=== PATIENT | female | born 1960 | race Caucasian/White ===

== ENCOUNTER → 2017-08-02 11:22 | Outpatient (CLI) | payer OTHER ==
--- NOTE | ~2017-08-02 | HEMODYNAMI ---
PATIENT:SRINIVAS BOLDEN MEDICAL RECORD: [id number] : 62 LOCATION:[facility] ADMISSION DATE: 08/02/17 Generatedon:08/02/201713:40 Patient name: SRINIVAS BOLDEN Patient #: [id number] SSN: : 1960 Date of study: 08/02/2017 Page: Of Hemodynamic Procedure Report Patient Data Patient Demographics Procedure consent was obtained First Name: SRINIVAS Gender: Female Last Name: YUAN : 1960 Middle Initial: SHARATH Age: 56 year(s) Patient #: [id number] Race: Unknown Additional ID: [id number] Contact details Address: [address] [place] [address] lane State: [place] City: [facility] [place] Zip code: [address] Past Medical History Allergies Allergen Reaction Date Comments Reported Other allergy 08/02/2017 MATT nolan Admission Admission Data Admission Date: 08/02/2017 Admission Time: 11:22 Lab Results Lab Result Date: 08/02/2017 Lab Result Time: 11:55 Biochemistry Name Units Result Min Max BUN mg/dl 18 --(---*)-- 7 18 Creatinine mg/dl 0.8 --(-*--)-- 0.6 1.3 CBC Name Units Result Min Max Hematocrit % 43.4 --(*---)-- 42 54 Hemoglobin g/dl 13.8 --(*---)-- 13.5 17.5 Procedure Procedure Types Cath Procedure Miscellaneous Procedures Moderate Sedation up to 30 minutes Peripheral Cath Diagnostic Procedure Cath Peripheral Jgrrs-Ieodapy-Vcy-Off Procedure Description Procedure Date Procedure Date: 08/02/2017 Procedure Start Time: 13:10 Procedure End Time: 13:39 Procedure Staff Name Function Jose Chaves MD Performing Physician Krissy Khan RT Scrub Ragini Moreno RN Nurse Chelita Fajardo RN Nurse Troy Colon RT Monitor Procedure Data Cath Procedure Fluoroscopy Diagnostic fluoroscopy Total fluoroscopy Time: 3 time: 3 min min Diagnostic fluoroscopy Total fluoroscopy dose: 460 dose: 460 mGy mGy Contrast Material Contrast Material Type Amount (ml) Isovue 300 102 Entry Location Entry Primary Successful Side Size Upsize Upsize Entry Closure Succes sful Closure Location (Fr) 1 (Fr) 2 (Fr) Remarks Device Remarks Femoral Right 6 Fr Exoseal artery Short Estimated blood loss: 5 ml Diagnostic catheters Device Type Used For End Catheter Placement Cordis Tempo 5Fr UF Procedure catheter Diagnostic 5Fr IMT Procedure Catheter Procedure Complications No complications Procedure Medications Medication Administration Route Dosage Oxygen NC 2 l/min Lidocaine 2% added to field 20 Heparin Flush Bag added to field 2 bags (1000units/500ml NS) 0.9% NaCl I.V. 100 ml/hr Versed I.V. 1 mg Fentanyl I.V. 50 mcg Versed I.V. 1 mg Fentanyl I.V. 50 mcg Versed I.V. 1 mg Fentanyl I.V. 50 mcg Versed I.V. 1 mg Fentanyl I.V. 50 mcg Versed I.V. 1 mg Fentanyl I.V. 50 mcg Versed I.V. 1 mg Fentanyl I.V. 50 mcg Hemodynamics Rest HGB: 13.8 (g/dl) Heart Rate: 100 (bpm) Snapshots Pre Cath Intra NCS Post Cath Vital Signs Time Heart Resp SPO2 etCO2 NIBP Rhythm Pain Sedation Rate (ipm) (%) (mmHg) (mmHg) Status Level (bpm) 13:07:11 98 19 100 45.5 129/70(94) NSR 0 (11) 10(A) , No pain 13:11:27 101 19 99 35.8 111/85(96) NSR 0 (11) 10(A) , No pain 13:15:41 96 17 99 42.5 120/64(80) NSR 0 (11) 10(A) , No pain 13:19:59 97 13 99 46.2 108/67(91) NSR 0 (11) 10(A) , No pain 13:24:11 93 16 99 48.5 107/70(90) NSR 0 (11) 10(A) , No pain 13:28:29 99 15 99 39.5 124/52(89) NSR 0 (11) 10(A) , No pain 13:32:35 96 14 99 38.8 100/69(88) NSR 0 (11) 10(A) , No pain 13:36:45 97 14 99 43.3 108/65(83) NSR 0 (11) 10(A) , No pain Medications Time Medication Route Dose Verified Delivered Reason Notes Effe ctiveness by by 13:05:37 Oxygen NC 2 Jose Buffie used for l/min Anastacio Moreno RN procedure 13:05:49 Lidocaine 2% added 20ml Jose Jose for local to vial Anastacio Chaves MD anesthetic field 13:05:57 Heparin Flush added 2 Jose Jose used for Bag to bags Anastacio Chaves MD procedure (1000units/500ml field NS) 13:06:07 0.9% NaCl I.V. 100 Jose Buffie Per ml/hr Anastacio Moreno RN physician 13:09:10 Versed I.V. 1 mg Jose Buffie for Anastacio Moreno RN sedation 13:09:15 Fentanyl I.V. 50 Jose Buffie for mcg Anastacio Moreno RN sedation 13:12:44 Versed I.V. 1 mg Jose Buffie for Anastacio Moreno RN sedation 13:12:48 Fentanyl I.V. 50 Jose Buffie for mcg Anastacio Moreno RN sedation 13:18:27 Versed I.V. 1 mg Jose Buffie for Anastacio Moreno RN sedation 13:18:30 Fentanyl I.V. 50 Jose Buffie for mcg Anastacio Moreno RN sedation 13:22:50 Versed I.V. 1 mg Jose Buffie for Anastacio Moreno RN sedation 13:22:54 Fentanyl I.V. 50 Jose Buffie for mcg Anastacio Moreno RN sedation 13:28:16 Versed I.V. 1 mg Jose Buffie for Anastacio Moreno RN sedation 13:28:19 Fentanyl I.V. 50 Jose Buffie for mcg Anastacio Moreno RN sedation 13:32:12 Versed I.V. 1 mg Jose Buffie for Anastacio Moreno RN sedation 13:32:17 Fentanyl I.V. 50 Jose Buffie for mcg Anastacio Moreno RN sedation Procedure Log Time Note 12:40:14 Ragini Moreno RN sent for patient. Start room use. 12:40:15 Time tracking: Regular hours 12:40:19 Plan of Care:Hemodynamics will remain stable., Cardiac rhythm will remain stable., Comfort level will be maintained., Respiratory function will remain adequate., Patient/ family verbilizes understanding of procedure., Procedure tolerated without complication., Recovers from procedure without complications.. 12:51:19 Patient received from Pre/Post Procedure Room to CCL 2 Alert and oriented. Tansferred to table in Supine position. 12:51:20 Warm blankets applied, and nabor hugger turned on for patient comfort. 12:51:21 Correct patient and procedure confirmed by team. 12:51:22 Signed procedure consent form obtained from patient. 12:51:23 ECG and BP/O2 sat monitors applied to patient. 12:51:24 Full Disclosure recording started 13:05:37 Oxygen 2 l/min NC was administered by Ragini Moreno RN; used for procedure; 13:05:49 Lidocaine 2% 20ml vial added to field was administered by Jose Chaves MD; for local anesthetic; 13:05:54 Vital chart was started 13:05:57 Heparin Flush Bag (1000units/500ml NS) 2 bags added to field was administered by Jose Chaves MD; used for procedure; 13:05:57 Baseline sample Acquired. 13:06:00 Rhythm: sinus rhythm 13:06:07 0.9% NaCl 100 ml/hr I.V. was administered by Ragini Moreno RN; Per physician; 13:06:15 H&P Date Dictated: 07/29/2017 Within 30 days and on chart., H&P Addendum completed by physician on day of procedure. (MUST COMPLETE FOR ALL OUTPATIENTS). 13:06:16 Pre-procedure instructions explained to patient. 13:06:17 Pre-op teaching completed and patient verbalized understanding. 13:06:17 Family in waiting room. 13:06:19 Patient NPO since Midnight. 13:06:34 Patient allergic to Other allergycodeine, PCN 13:06:44 Is the patient allergic to Iodine/contrast media? No. 13:06:47 Is patient on blood thinner?No 13:06:48 Patient diabetic? Yes. 13:06:49 If diabetic: On Metformin? Yes 13:06:52 If on Metformin: Last Dose? 07/31/2017 13:06:58 Previous problem with sedation/anesthesia? No ? 13:06:59 Snore? Yes 13:07:00 Sleep apnea? No 13:07:01 Deviated septum? No 13:07:01 Opens mouth fully? Yes 13:07:02 Sticks out tongue? Yes 13:07:04 Airway obstruction? No ? 13:07:05 Dentures? No ? 13:07:09 Pre procedure: right dorsailis pedis pulse Doppler 13:07:11 Pre procedure: left dorsailis pedis pulse Doppler 13:07:14 Patient pain scale 0/10 ?. 13:07:17 IV patent on arrival in left antecubital with 0.9% NaCl at [facility]. 13:08:36 Lab Result : Creatinine 0.8 mg/dl 13:08:36 Lab Result : BUN 18 mg/dl 13:08:36 Lab Result : Hemoglobin 13.8 g/dl 13:08:36 Lab Result : Hematocrit 43.4 % 13:08:38 Lab results completed and on chart. 13:08:40 Bilateral groins area was prepped with chlora-prep and draped in sterile fashion 13:08:41 Alarms reviewed by R. N. 13:08:41 Sharps counted by scrub and verified by R.N. 13:08:44 Tegaderm 4 x 4 opened to sterile field. 13:08:45 Acist Manifold opened to sterile field. 13:08:45 Acist Hand Control opened to sterile field. 13:08:47 St Octavio 260cm J .035 wire opened to sterile field. 13:08:47 Medline Cath Pack opened to sterile field. 13:08:48 Bag Decanter opened to sterile field. 13:08:48 Acist Syringe opened to sterile field. 13:08:57 Terumo 6Fr [place] Sheath opened to sterile field. 13:09:02 Physician arrived 13:09:02 --------ALL STOP TIME OUT------ 13:09:05 Final Timeout: patient, procedure, and site verified with staff and physician. All members of the team are in agreement. 13:09:08 Bilateral groins site verified by team. 13:09:10 Versed 1 mg I.V. was administered by Ragini Moreno RN; for sedation; 13:09:11 Physical assessment completed. ASA score P 2 - A patient with mild systemic disease as per Jose Chaves MD. 13:09:13 Sedation plan: IV Moderate Sedation Versed, Fentanyl 13:09:15 Fentanyl 50 mcg I.V. was administered by Ragini Moreno RN; for sedation; 13:10:15 Procedure started. 13:10:18 Local anesthetic to right femoral artery with Lidocaine 2% by Jose Chaves MD.INITIAL ACCESS ONLY 13:12:44 Versed 1 mg I.V. was administered by Ragini Moreno RN; for sedation; 13:12:47 A 6 Fr Short sheath was inserted into the Right Femoral artery 13:12:48 Fentanyl 50 mcg I.V. was administered by Ragini Moreno RN; for sedation; 13:13:02 Zero performed for pressure channel P1 13:15:39 A Cordis Tempo 5Fr UF catheter was advanced over the wire and used for Procedure. 13:16:39 Abdominal Aortagram was performed. 13:18:27 Versed 1 mg I.V. was administered by Ragini Moreno RN; for sedation; 13:18:30 Fentanyl 50 mcg I.V. was administered by Ragini Moreno RN; for sedation; 13:18:59 Left leg runoff performed. 13:18:59 Right leg runoff performed. 13:20:47 Terumo ANGLE 260cm glide wire opened to sterile field. 13:21:09 glide wire advanced. 13:21:23 [place] wire advanced around horn. 13:22:50 Versed 1 mg I.V. was administered by Ragini Moreno RN; for sedation; 13:22:54 Fentanyl 50 mcg I.V. was administered by Ragini Moreno RN; for sedation; 13:22:59 Catheter removed. 13:23:03 A Diagnostic 5Fr IMT Catheter was advanced over the wire and used for Procedure. 13:28:16 Versed 1 mg I.V. was administered by Ragini Moreno RN; for sedation; 13:28:19 Fentanyl 50 mcg I.V. was administered by Ragini Moreno RN; for sedation; 13:32:12 Versed 1 mg I.V. was administered by Ragini Moreno RN; for sedation; 13:32:17 Fentanyl 50 mcg I.V. was administered by Ragini Moreno RN; for sedation; 13:32:57 Wire removed. 13:33:03 Catheter removed. 13:33:41 Cordis 6Fr Exoseal opened to sterile field. 13:33:51 Sheath removed intact; hemostasis achieved with Exoseal to the Right Femoral artery. 13:33:52 Procedure ended.(Physican Out) 13:34:26 Fluoroscopy time 03.00 minutes. 13:34:36 Fluoroscopy dose: 460 mGy 13:34:36 Flurop Dose total: 460 13:34:41 Contrast amount:Isovue 300 102ml. 13:34:43 Sharps counted by scrub and verified by R.N. 13:34:44 Insertion/operative site no bleeding no hematoma. 13:34:47 Post-op/insertion site Right Femoral artery dressed using a 4 x 4 and Tegaderm. 13:34:50 Post right femoral artery:stable, soft, clean and dry 13:34:52 Post Procedure Pulses reassessed and unchanged 13:34:53 Post-procedure physical assessment completed. ASA score P 2 - A patient with mild systemic disease as per Jose Chaves MD. 13:34:56 Post procedure rhythm: unchanged. 13:36:46 Estimated blood loss: 5 ml 13:36:57 Post procedure instruction explained to patient.Patient verbalizes understanding. 13:36:58 Patient needs reinforcement of post procedure teaching. 13:38:42 Procedure type changed to Cath procedure, Miscellaneous Procedures, Moderate Sedation up to 30 minutes, Peripheral Cath Diagnostic Procedure, Cath Peripheral, Nqare-Redjlvd-Duj-Off 13:39:02 PERCUTANEOUS ENTRY 19GA needle opened to sterile field. 13:39:22 Procedure and supply charges have been captured, reviewed, submitted and are correct. 13:39:24 Procedure Complication : No complications 13:39:46 Vital chart was stopped 13:39:46 See physician's report for complete and final results. 13:39:48 Report given to Pre/Post Procedure Room. 13:39:57 Patient transfered to Pre/Post Procedure Room with Stretcher. 13:39:58 Procedure ended. 13:39:58 Full Disclosure recording stopped 13:40:16 End room use (Document Last) Device Usage Item Name Manufacture Quantity Catalog Number Hospital Part Current Mini mal Lot# / Charge Number Stock Stock Serial# Code Tegaderm 4 x 3M 1 [id number] [id number] [id number] 5 4 Acist Acist 1 27118 692528 118788 372134 5 Novalys Inc Acist Hand Acist 1 23683 415482 436079 113496 [address] St Octavio 1 083067 807937 140617 460182 30 260cm J .035 wire Medline Cath Cardinal 1 [id number] 643586 65835 546393 5 Pack Health Bag Decanter Microtek 1 2002S 165199 07041 248110 5 Medical Inc. Acist Acist 1 89085 866853 557468 127437 20 Syringe Medical Systems Inc Terumo 6Fr Terumo 1 [id number] 958055 826354 910518 40 [place] Sheath Cordis Tempo Cardinal 1 [id number] 194812 039956 320328 10 5Fr Health catheter Terumo ANGLE Terumo 1 [id number] 041607 630039 389344 5 260cm glide wire Diagnostic Sorrento 1 [id number] 926980 846841 93282 5 5Fr [employer] Scientific Catheter Cordis 6Fr Cardinal 1 EX600 550532 184696 524388 10 [facility] 1 [id number] 800866 824350 5 ENTRY 19GA needle Signature Audit [place] Stage Time Signature Unsigned Intra-Procedure 08/02/2017 Troy Colon 1:40:43 PM RT(R) Signatures Monitor : Troy Colon RT Signature : Date : Time : [id number] [place] [address]
[~2017-08-02 11:22] MED LIST: ACTOS30 MG PO; GLUCOPHAGE500 MG PO; GLYBURIDE5 M1 PO; IBUPROFEN800 MG PO; LEVOTHYROXINE112 MCG PO; NEURONTIN 300300 MG PO; NORVASC10 MG PO; PLAVIX75 MG PO; PRINIVIL20 MG PO; ULTRAM50 MG PO
[2017-08-02 11:51] VITALS: BP 131/68; BMI 44.0
[2017-08-02 12:15] LABS: BASOPHILS 0.2 % (0-2); EOSINOPHILS 2.7 % (0-7); HEMATOCRIT 43.4 % (36.0-48.0); HEMOGLOBIN 13.8 g/dL (12-16); IMMATURE GRANULOCYTES 0.2 % (0-5); MCHC 31.8 g/dL (31.0-37.0); MCV 84.9 fL (80.0-100.0); MEAN PLATELET VOLUME 9.4 fL (7.4-10.4); MONOCYTES 7.5 % (2-11); NEUTROPHILS 68.4 % (40-80); PLATELET COUNT 331 10x3/uL (130-400); RBC 5.11 10x6/uL (4.00-5.40); RDW 15.9 % (11.5-14.5); WBC 8.6 10x3/uL (4.8-10.8)
[2017-08-02 12:27] LABS: CALC OSMOLALITY 285 mosm/kg (275-300); CALCIUM 9.1 mg/dL (8.5-10.1); CARBON DIOXIDE 27.4 mmol/L (21.0-32.0); CHLORIDE - SERUM 106 mmol/L (98-107); CREATININE - SERUM 0.8 mg/dL (0.6-1.3); SODIUM 142 mmol/L (136-145); UREA NITROGEN 18 mg/dL (7-18); eGFR NON AFRICAN AMERICAN 79 mL/min (90-120)
[2017-08-02 12:32] LABS: GLUCOSE 122 mg/dL (74-106)
--- NOTE | 2017-08-02 13:57 | NUR ---
1345 RECEIVED PT FROM P[employer] INST[employer]ER. PT IS ALERT. DENIES ANY C/O PAIN OR NAUSEA. DRESSING TO RIGHT GROIN IS CDI, NO BLEEDING OR HEMATOMA NOTED. AREA IS SOFT AND NONTENDER. POSTERIOR TIBIAL AND POLITEAL PULSES BY DOPPLER. CALL LIGHT IN REACH. PT INSTRUCTED TO KEEP HEAD TO PILLOW AND RIGHT LEG STRAIGHT AND VERBALIZES UNDERSTANDING.
--- NOTE | 2017-08-02 14:09 | NUR ---
1400 DRESSING RIGHT GROIN IS CDI, AREA IS SOFT AND NONTENDER. PULSES BY DOPPLER. DENIES ANY C/O PAIN OR NAUSEA. FAMILY AT BEDSIDE, CALL LIGHT IN REACH.
--- NOTE | 2017-08-02 14:20 | NUR ---
1420 DRESSING IS CDI, AREA SOFT AND NONTENDER. PULSES BY DOPPLER. FAMILY AT BEDSIDE, PT DENIES NEEDS AT THIS TIME. CALL LIGHT IN REACH.
--- NOTE | 2017-08-02 15:15 | NUR ---
1510 PT VOIDED APPROX 300 CC CLEAR YELLOW URINE USING BEDPAN. RIGHT GROIN DRESSING REMAINS CDI, AREA SOFT AND NONTENDER.
--- NOTE | 2017-08-02 15:15 | NUR ---
1445 DRESSING RIGHT GROIN IS CDI, AREA IS SOFT AND NONTENDER. PT DENIES ANY C/O AT THIS TIME. CALL LIGHT IN REACH. FAMILY AT BEDSIDE.
--- NOTE | 2017-08-02 15:42 | NUR ---
HOB ELEVATED 45 DEGREES, SANDWICH AND PO FLUIDS SERVED. DRESSING REMAINS CDI.
--- NOTE | 2017-08-02 16:11 | NUR ---
1410 HOB ELEVATED 90 DEGREES, RIGHT GROIN DRESSING REMAINS CDI. AREA IS SOFT AND NONTENDER. PT HAS TOLERATED SANDWICH WITH NO C/O NAUSEA. IV DC'D WITH CATH INTACT. PT DRESSING FOR DC TO HOME.
--- NOTE | 2017-08-02 16:26 | NUR ---
1625 IV HAS BEEN DC'D WITH CATH INTACT. PT DRESSING FOR DC TO HOME. DRESSING TO RIGHT GROIN IS CDI, AREA IS SOFT AND NONTENDER.
--- NOTE | 2017-08-02 16:37 | NUR ---
1630 DC INSTRUCTIONS HAVE BEEN REVIEWED AND PT VERBALIZES UNDERSTANDING. PT ESCORTED TO PRIVATE AUTO VIA WC BY NURSE WITH DAUGHTER DRIVING HER HOME.
== END | disposition home or self-care (01) ==
LOC: D.CATH 11:22
PROVIDERS: Internal Medicine Cardiovascular Disease
DX: I70.213 Atherosclerosis of native arteries of extremities with intermittent claudication, bilateral legs (principal); I10 Essential (primary) hypertension; Z87.891 Personal history of nicotine dependence; Z01.812 Encounter for preprocedural laboratory examination

== ENCOUNTER 2017-08-16 10:58 | Outpatient (CLI) | payer OTHER ==
[~2017-08-16] VITALS: Ht 152.4 cm; Wt 102.3 kg
--- NOTE | ~2017-08-16 | HEMODYNAMI ---
PATIENT:SRINIVAS BOLDEN MEDICAL RECORD: [id number] : 62 LOCATION:[facility] ADMISSION DATE: 08/16/17 Generatedon:08/16/201715:19 Patient name: SRINIVAS BOLDEN Patient #: [id number] SSN: : 1960 Date of study: 08/16/2017 Page: Of Hemodynamic Procedure Report Patient Data Patient Demographics Procedure consent was obtained First Name: SRINIVAS Gender: Female Last Name: YUAN : 1960 Middle Initial: SHARATH Age: 56 year(s) Patient #: [id number] Race: Unknown Additional ID: [id number] Contact details Address: [address] [place] [address] [place] State: [place] City: [facility] Zip code: [address] Past Medical History Allergies Allergen Reaction Date Comments Reported Other allergy 08/02/2017 codeine, PCN Other allergy 08/16/2017 pcn, codeine Admission Admission Data Admission Date: 08/16/2017 Admission Time: 10:58 Lab Results Lab Result Date: 08/16/2017 Lab Result Time: 0:00 Biochemistry Name Units Result Min Max BUN mg/dl 15 --(--*-)-- 7 18 Creatinine mg/dl 0.7 --(*---)-- 0.6 1.3 CBC Name Units Result Min Max Hemoglobin g/dl 14.8 --(-*--)-- 13.5 17.5 Procedure Procedure Types Cath Procedure Miscellaneous Procedures Moderate Sedation up to 15 minutes Moderate Sedation up to 45 minutes Peripheral vascular Intervention Stent Stent-Fem/Popw/plasty Procedure Description Procedure Date Procedure Date: 08/16/2017 Procedure Start Time: 14:13 Procedure End Time: 15:16 Procedure Staff Name Function Jose Chaves MD Performing Physician Jacquelin Crandall RT Scrub Farhat Mckenzie RN Nurse Melinda Pena RT Monitor Procedure Data Cath Procedure Fluoroscopy Diagnostic fluoroscopy Total fluoroscopy Time: time: 19.9 min 19.9 min Diagnostic fluoroscopy Total fluoroscopy dose: 994 dose: 994 mGy mGy Contrast Material Contrast Material Type Amount (ml) Isovue 300 118 Entry Location Entry Primary Successful Side Size Upsize Upsize Entry Closure Plata ccessful Closure Location (Fr) 1 (Fr) 2 (Fr) Remarks Device Remarks Femoral Left 5 Fr Manual vein Compression Femoral Left 6 Fr 6 Fr Exoseal artery Long Short Estimated blood loss: 5 ml Diagnostic catheters Device Type Used For End Catheter Placement Diagnostic Infinity 5Fr Multi-vessel IM catheter Angiography Procedure Complications No complications Procedure Medications Medication Administration Route Dosage Oxygen NC 2 l/min Heparin Flush Bag added to field 2 bags (1000units/500ml NS) 0.9% NaCl I.V. 100 ml/hr Fentanyl I.V. 50 mcg Versed I.V. 1 mg Fentanyl I.V. 50 mcg Versed I.V. 1 mg Fentanyl I.V. 50 mcg Versed I.V. 1 mg Heparin Bolus I.V. 8000 units Fentanyl I.V. 50 mcg Versed I.V. 1 mg Plavix P.O. 600 mg Hemodynamics Rest HGB: 14.8 (g/dl) Heart Rate: 94 (bpm) Snapshots Pre Cath Intra NCS Post Cath Vital Signs Time Heart Resp SPO2 etCO2 NIBP (mmHg) Rhythm Pain Sedation Rate (ipm) (%) (mmHg) Status Level (bpm) 14:01:19 97 17 100 34.1 163/84(121) NSR 0 (11) 10(A) , No pain 14:19:43 87 17 100 45.4 150/79(98) NSR 0 (11) 10(A) , No pain 14:24:08 92 16 100 45.4 133/77(120) NSR 0 (11) 10(A) , No pain 14:29:19 88 18 99 43.1 124/75(107) NSR 0 (11) 10(A) , No pain 14:33:33 91 17 99 43.9 120/77(112) NSR 0 (11) 10(A) , No pain 14:37:47 90 18 99 45.4 123/77(91) NSR 0 (11) 10(A) , No pain 14:43:12 97 17 99 42.4 145/70(102) NSR 0 (11) 10(A) , No pain 14:47:39 91 18 99 40.9 143/77(109) NSR 0 (11) 10(A) , No pain 14:51:49 88 17 99 39.3 134/61(104) NSR 0 (11) 10(A) , No pain 15:03:54 90 17 98 34 137/69(103) NSR 0 (11) 10(A) , No pain 15:08:12 90 17 98 37.8 136/72(120) NSR 0 (11) 10(A) , No pain 15:18:12 88 17 99 37.1 113/79(90) NSR 0 (11) 10(A) , No pain Medications Time Medication Route Dose Verified Delivered Reason Notes Effectiveness by by 13:59:05 Oxygen NC 2 Jose Farhat Per physician l/min Anastacio Mckenzie RN 13:59:14 Heparin Flush added 2 Jose Farhat used for Bag to bags Anastacio Mckenzie RN procedure (1000units/500ml field NS) 13:59:27 0.9% NaCl I.V. 100 Jose Farhat Per physician ml/hr Anastacio Mckenzie RN 14:10:58 Fentanyl I.V. 50 Jose Farhat for sedation mcg Anastacio Mckenzie RN 14:11:13 Versed I.V. 1 mg Jose Farhat for sedation Anastacio Mckenzie RN 14:15:25 Fentanyl I.V. 50 Jose Farhat for sedation mcg Anastacio Mckenzie RN 14:15:28 Versed I.V. 1 mg Jose Farhat for sedation Anastacio Mckenzie RN 14:18:39 Fentanyl I.V. 50 Jose Farhat for sedation mcg Anastacio Mckenzie RN 14:21:23 Versed I.V. 1 mg Jose Farhat for sedation Anastacio Mckenzie RN 14:27:11 Heparin Bolus I.V. 8000 Jose Farhat for units Anastacio Mckenzie RN anticoagulation 14:30:40 Fentanyl I.V. 50 Jose Farhat for sedation mcg Anastacio Mckenzie RN 14:30:46 Versed I.V. 1 mg Jose Farhat for sedation Anastacio Mckenzie RN 15:18:42 Plavix P.O. 600 Jose Farhat for mg Anastacio Mckenzie RN antiplatelet therapy Procedure Log Time Note 13:40:15 Farhat Mckenzie RN sent for patient. Start room use. 13:52:16 Time tracking: Regular hours 13:52:21 Plan of Care:Hemodynamics will remain stable., Cardiac rhythm will remain stable., Comfort level will be maintained., Respiratory function will remain adequate., Patient/ family verbilizes understanding of procedure., Procedure tolerated without complication., Recovers from procedure without complications.. 13:52:55 Patient received from Pre/Post Procedure Room to CCL 2 Alert and oriented. Tansferred to table in Supine position. 13:52:56 Warm blankets applied, and nabor hugger turned on for patient comfort. 13:52:56 Correct patient and procedure confirmed by team. 13:52:58 Signed procedure consent form obtained from patient. 13:52:59 ECG and BP/O2 sat monitors applied to patient. 13:59:05 Oxygen 2 l/min NC was administered by Farhat Mckenzie RN; Per physician; 13:59:14 Heparin Flush Bag (1000units/500ml NS) 2 bags added to field was administered by Farhat Mckenzie RN; used for procedure; 13:59:27 0.9% NaCl 100 ml/hr I.V. was administered by Farhat Mckenzie RN; Per physician; 13:59:54 Vital chart was started 14:00:53 Baseline sample Acquired. 14:07:37 Rhythm: sinus rhythm 14:07:39 Full Disclosure recording started 14:07:42 H&P Date Dictated: 08/16/2017 Within 30 days and on chart., H&P Addendum completed by physician on day of procedure. (MUST COMPLETE FOR ALL OUTPATIENTS). 14:07:44 Pre-procedure instructions explained to patient. 14:07:44 Pre-op teaching completed and patient verbalized understanding. 14:07:45 Family in waiting room. 14:07:47 Patient NPO since Midnight. 14:08:02 Patient allergic to Other allergypcn, codeine 14:08:04 Is the patient allergic to Iodine/contrast media? No. 14:08:05 Was the patient premedicated? No 14:08:07 Is patient on blood thinner?No 14:08:11 Patient diabetic? Yes. 14:08:14 Previous problem with sedation/anesthesia? No ? 14:08:21 Snore? Yes 14:08:22 Sleep apnea? No 14:08:23 Deviated septum? No 14:08:24 Opens mouth fully? Yes 14:08:25 Sticks out tongue? Yes 14:08:36 If diabetic: On Metformin? Yes 14:08:39 If on Metformin: Last Dose? 08/14/2017 14:08:44 Airway obstruction? No ? 14:08:47 Dentures? No ? 14:08:49 Pre procedure: right dorsailis pedis pulse 1+ Palpable, but thready & weak; easily obliterated 14:08:52 Pre procedure: left dorsailis pedis pulse 1+ Palpable, but thready & weak; easily obliterated 14:08:57 IV patent on arrival in left forearm with 0.9% NaCl at [facility]. 14:09:19 Lab Result : BUN 15 mg/dl 14::19 Lab Result : Creatinine 0.7 mg/dl 14:09:19 Lab Result : Hemoglobin 14.8 g/dl 14:09:22 Lab results completed and on chart. 14:09:30 Bilateral groins area was prepped with chlora-prep and draped in sterile fashion 14:09:31 Alarms reviewed by R. N. 14:09:32 Sharps counted by scrub and verified by R.N. 14:09:33 Physician arrived 14::33 --------ALL STOP TIME OUT------ 14:09:33 Final Timeout: patient, procedure, and site verified with staff and physician. All members of the team are in agreement. 14:09:35 Bilateral groins site verified by team. 14:09:38 Physical assessment completed. ASA score P 2 - A patient with mild systemic disease as per Jose Chaves MD. 14:09:41 Sedation plan: IV Moderate Sedation Versed, Fentanyl 14:10:58 Fentanyl 50 mcg I.V. was administered by Farhat Mckenzie RN; for sedation; 14:11:13 Versed 1 mg I.V. was administered by Farhat Mckenzie RN; for sedation; 14:12:11 Procedure started. 14:12:13 Use device set Femoral PCI 14:12:14 Acist Syringe opened to sterile field. 14:12:14 Acist Hand Control opened to sterile field. 14:12:15 Bag Decanter opened to sterile field. 14:12:15 Medline Cath Pack opened to sterile field. 14:12:16 Terumo 6Fr [place] Sheath opened to sterile field. 14:12:16 St Octavio 260cm J .035 wire opened to sterile field. 14:12:17 Merit BasixCompak Inflation Kit opened to sterile field. 14:12:17 Acist Manifold opened to sterile field. 14:12:18 Tegaderm 4 x 4 opened to sterile field. 14:12:43 Terumo 6Fr [place] Destination Sheath opened to sterile field. 14:12:44 Terumo ANGLE 260cm glide wire opened to sterile field. 14:13:02 Local anesthetic to left femerol artery with Lidocaine 2% by Jose Chaves MD.INITIAL ACCESS ONLY 14:14:32 A 5 Fr sheath was inserted into the Left Femoral vein 14:14:54 A 6 Fr Long sheath was inserted into the Left Femoral artery 14:15:25 Fentanyl 50 mcg I.V. was administered by Farhat Mckenzie RN; for sedation; 14:15:28 Versed 1 mg I.V. was administered by Farhat Mckenzie RN; for sedation; 14:16:14 A Diagnostic Infinity 5Fr IM catheter was advanced over the wire and used for Multi-vessel Angiography. 14:18:26 Vital chart was stopped 14:18:27 Vital chart was started 14:18:39 Fentanyl 50 mcg I.V. was administered by Farhat Mckenzie RN; for sedation; 14:19:00 glide\ wire advanced. 14:19:09 Right leg runoff performed. 14:21:23 Versed 1 mg I.V. was administered by Farhat Mckenzie RN; for sedation; 14:23:10 Terumo TORQUE DEVICE PLASTIC .038 opened to sterile field. 14:25:27 glide wire exchanged for j wire 14:27:11 Heparin Bolus 8000 units I.V. was administered by Farhat Mckenzie RN; for anticoagulation; 14:30:40 Fentanyl 50 mcg I.V. was administered by Farhat Mckenzie RN; for sedation; 14:30:46 Versed 1 mg I.V. was administered by Farhat Mckenzie RN; for sedation; 14:32:37 Santos Whisper J 300cm 0.014 guide wire opened to sterile field. 14:34:17 Wire removed. 14:34:25 whisper wire advanced. 14:39:39 Inflation number: 1 A Saber 3.0 x 8 x 150 balloon was prepped and advanced across the Mid Superficial Femoral, Right, then inflated to 8 MILTON for 0:10 (min:sec). 14:41:09 Inflation number: 2 The Saber 3.0 x 8 x 150 balloon was reinflated across the Mid Superficial Femoral, Right, to 8 MILTON for 0:30 (min:sec). 14:43:21 Balloon removed over the wire. 14:47:16 Inflation number: 3 A Cordis Powerflex Pro 5.0 X 100 X 135 balloon was prepped and advanced across the Mid Superficial Femoral, Right, then inflated to 3 MILTON for 0:30 (min:sec). 14:48:33 Inflation number: 4 The Cordis Powerflex Pro 5.0 X 100 X 135 balloon was reinflated across the Mid Superficial Femoral, Right, to 3 MILTON for 0:00 (min:sec). 14:52:43 Inflation number: 5 The Cordis Powerflex Pro 5.0 X 100 X 135 balloon was reinflated across the Mid Superficial Femoral, Right, to 3 MILTON for 0:30 (min:sec). 14:53:34 Balloon removed over the wire. 15:01:43 Cordis SMART 6 X 120 X 120 stent was deployed across Mid Superficial Femoral, Right . 15:08:28 Cordis SMART Flex 5 X 40 X 120 stent was deployed across Mid Superficial Femoral, Right . 15:10:32 Stent catheter was removed intact over wire. 15:10:39 Wire removed. 15:10:55 Sheath upsized to a 6 Fr Short. 15:11:25 Cordis 6Fr Exoseal opened to sterile field. 15:11:40 Sheath removed intact; hemostasis achieved with Exoseal to the Left Femoral artery. 15:11:45 Sheath removed intact; hemostasis achieved with Manual Compression to the Left Femoral vein. 15:11:51 Procedure ended.(Physican Out) 15:12:51 Fluoroscopy time 19.90 minutes. 15:13:06 Flurop Dose total: 994 15:13:06 Fluoroscopy dose: 994 mGy 15:14:16 Contrast amount:Isovue 300 118ml. 15:14:18 Sharps counted by scrub and verified by R.N. 15:14:20 Insertion/operative site no bleeding no hematoma. 15:14:30 Post-op/insertion site Left Femoral artery dressed using a 4 x 4 and Tegaderm. 15:14:34 Post left femerol artery:stable 15:14:39 Post Procedure Pulses reassessed and unchanged 15:14:41 Post procedure rhythm: unchanged. 15:14:45 Estimated blood loss: 5 ml 15:14:46 Post procedure instruction explained to patient.Patient verbalizes understanding. 15:14:47 Patient needs reinforcement of post procedure teaching. 15:15:43 Procedure type changed to Cath procedure, Miscellaneous Procedures, Moderate Sedation up to 15 minutes, Moderate Sedation up to 45 minutes, Peripheral vascular Intervention, Stent, Stent-Fem/Popw/plasty 15:15:43 Procedure and supply charges have been captured, reviewed, submitted and are correct. 15:15:48 Procedure Complication : No complications 15:15:51 See physician's report for complete and final results. 15:16:15 Report given to Pre/Post Procedure Room. 15:16:17 Patient transfered to Pre/Post Procedure Room with Stretcher. 15:16:25 Procedure ended. 15:16:25 Full Disclosure recording stopped 15:16:38 ACC-PCI Only Patient was given prescriptions, or instructed by Jose Chaves MD to start/continue the following medications upon discharge: Plavix 15:16:40 End room use (Document Last) 15:18:42 Plavix 600 mg P.O. was administered by Farhat Mckenzie RN; for antiplatelet therapy; 15:19:53 Vital chart was stopped Intervention Summary Intervention Notes Time ActionType Lesion and Equipment Action# Pressure Duration Attributes Used 14:39:39 Inflate Mid Saber 3.0 1 8 00:10 balloon Superficial x 8 x 150 Femoral, balloon Right 14:41:09 Reinflate Mid Saber 3.0 2 8 00:30 balloon Superficial x 8 x 150 Femoral, balloon Right 14:47:16 Inflate Mid Cordis 3 3 00:30 balloon Superficial Powerflex Femoral, Pro 5.0 X Right 100 X 135 balloon 14:48:33 Reinflate Mid Cordis 4 3 00:00 balloon Superficial Powerflex Femoral, Pro 5.0 X Right 100 X 135 balloon 14:52:43 Reinflate Mid Cordis 5 3 00:30 balloon Superficial Powerflex Femoral, Pro 5.0 X Right 100 X 135 balloon 15:01:43 Deploy self Mid Cordis 1 expanding Superficial SMART 6 X stent Femoral, 120 X 120 Right stent 15:08:28 Deploy self Mid Cordis 1 expanding Superficial SMART stent Femoral, Flex 5 X Right 40 X 120 stent Device Usage Item Name Manufacture Quantity Catalog Hospital Part Current Minimal L ot# / Number Charge Number Stock Stock Serial# Code Acist Acist 1 60142 371935 [id number] [id number] 20 Syringe Medical [employer] Inc Acist Hand Acist 1 10538 979076 698119 655789 5 Control Medical Systems Inc Bag Microtek 1 2002S 064879 88977 343963 5 Decanter Medical Inc. Medline Cardinal 1 [id number] 099215 58115 769304 5 Cath Pack Health Terumo 6Fr Terumo 1 [id number] 358508 471952 399214 [address] St Octavio 1 [id number] 105214 965447 678456 30 260cm J .035 wire Merit Merit 1 [id number] 098765 027250 733889 15 VeryLastRoom Medical Inflation Kit Acist Acist 1 74221 242277 591147 104258 5 ESO Solutions [employer] Inc Tegaderm 4 3M 1 [id number] 761472 277735 878810 5 x 4 Terumo 6Fr Terumo 1 [id number] 824529 75861 196626 5 Marquette Destination Sheath Terumo Terumo 1 [id number] 501465 068622 009988 5 ANGLE 260cm glide wire Diagnostic Cardinal 1 [id number] 967682 726045 579808 5 Infinity Health 5Fr IM catheter Terumo [place] 1 [id number] 883014 040040 120700 5 TORQUE Scientific DEVICE PLASTIC .038 Santos Santos 1 [id number] 641790 878697 476262 5 Whisper J Vascular 300cm 0.014 guide wire Saber 3.0 x Cardinal 1 [id number] 390831 917934 824724 5 8 x 150 Health balloon Cordis Cardinal 1 [id number] 400357 137611 943092 5 Powerflex Health Pro 5.0 X 100 X 135 balloon Cordis Cardinal 1 [id number] 455105 836066 0 SMART 6 X Health 120 X 120 stent Cordis Cardinal 1 [id number] 256207 182824 0 4 0762 SMART Flex Health 5 X 40 X 120 stent Cordis 6Fr Cardinal 1 [id number] 710410 343183 833352 10 [facility] Health Signature Audit [place] Stage Time Signature Unsigned Intra-Procedure 08/16/2017 Melinda Pena 3:19:49 PM RT(R) Signatures Monitor : Melinda Pena RT Signature : Date : Time : [id number] [place] [address]
[~2017-08-16 10:58] MED LIST changes: -PLAVIX75 MG PO
[2017-08-16 11:55] VITALS: BP 163/96; Ht 152.4 cm; Wt 102.3 kg
[2017-08-16 12:07] LABS: BASOPHILS 0.4 % (0-2); EOSINOPHILS 3.3 % (0-7); HEMATOCRIT 46.5 % (36.0-48.0); HEMOGLOBIN 14.8 g/dL (12-16); IMMATURE GRANULOCYTES 0.4 % (0-5); LYMPHOCYTES 27.1 % (15-50); MCHC 31.8 g/dL (31.0-37.0); MCV 84.9 fL (80.0-100.0); MEAN PLATELET VOLUME 9.2 fL (7.4-10.4); MONOCYTES 6.2 % (2-11); NEUTROPHILS 62.6 % (40-80); PLATELET COUNT 334 10x3/uL (130-400); RBC 5.48 10x6/uL (4.00-5.40); RDW 15.2 % (11.5-14.5); WBC 7.9 10x3/uL (4.8-10.8)
[2017-08-16 12:20] LABS: CALC OSMOLALITY 282 mosm/kg (275-300); CALCIUM 9.2 mg/dL (8.5-10.1); CARBON DIOXIDE 25.8 mmol/L (21.0-32.0); CHLORIDE - SERUM 103 mmol/L (98-107); CREATININE - SERUM 0.7 mg/dL (0.6-1.3); GLUCOSE 118 mg/dL (74-106); POTASSIUM - SERUM 3.8 mmol/L (3.5-5.1); SODIUM 141 mmol/L (136-145); UREA NITROGEN 15 mg/dL (7-18); eGFR NON AFRICAN AMERICAN > 90 mL/min (90-120)
[2017-08-16] MEDS ORDERED: PLAVIX75 MG PO (17:08)
--- NOTE | 2017-08-16 17:16 | NUR ---
1545 LYING FLAT, ROOM AIR WITH NO RESP DISTRESS. NSR RATE 81 W NO C/O CHEST PAIN. PULSES PALP X4, CAP REFILL BRISK TO BLE. L GROIN 6F EXOSEAL C/D/I W NO HEMATOMA OR BLEEDING. FAMILY AT BEDSIDE. 1615 L GROIN REMAINS C/D/I. ALL VITALS WNL. 1645 VOIDED VIA BEDPAN 300CC. L GROIN REMAINS C/D/I.
--- NOTE | 2017-08-16 19:00 | NUR ---
1800 ELEVATED HOB, EATING TURKEY SANDWICH. WILL MONITOR L GROIN FOR BLEEDING. ALL VITALS REMAIN WNL. DAUGHTER AT BEDSIDE.
--- NOTE | 2017-08-16 19:33 | NUR ---
1900 AMBULATED TO BATHROOM TO VOID. L GROIN REMAINS C/D/I AFTER AMBULATING. 1914 PIV REMOVED FROM LEFT HAND WITH BANDAID APPLIED. UP TO BEDSIDE TO DRESS. D/C INSTRUCTIONS DISCUSSED WITH PATIENT AND DAUGHTER AT BEDSIDE. WHEELED OUT VIA WHEELCHAIR BY CATH TEAM.
== END 2017-08-16 19:35 | disposition home or self-care (01) ==
LOC: D.CATH 10:58
PROVIDERS: Internal Medicine Cardiovascular Disease
DX: I70.211 Atherosclerosis of native arteries of extremities with intermittent claudication, right leg (principal); Z01.812 Encounter for preprocedural laboratory examination

== ENCOUNTER → 2017-09-22 09:51 | Outpatient (CLI) | payer OTHER ==
[2017-08-16 11:55] VITALS: BMI 44.0
[~2017-09-22 09:51] MED LIST changes: +PLAVIX75 MG PO
== END | disposition home or self-care (01) ==
LOC: D.CT 09-20 09:44
DX: I73.9 Peripheral vascular disease, unspecified (principal); I70.219 Atherosclerosis of native arteries of extremities with intermittent claudication, unspecified extremity

== ENCOUNTER 2017-10-27 10:39 | Outpatient (CLI) | payer OTHER ==
[~2017-10-27] VITALS: Ht 152.4 cm; Wt 102.3 kg
--- NOTE | ~2017-10-27 | HEMODYNAMI ---
PATIENT:SRINIVAS BOLDEN MEDICAL RECORD: [id number] : 62 LOCATION:[facility] ADMISSION DATE: 10/27/17 Generatedon:10/27/201715:20 Patient name: SRINIVAS BOLDEN Patient #: [id number] SSN: : 1960 Date of study: 10/27/2017 Page: Of Hemodynamic Procedure Report Patient Data Patient Demographics Procedure consent was obtained First Name: SRINIVAS Gender: Female Last Name: YUAN : 1960 Middle Initial: SHARATH Age: 56 year(s) Patient #: [id number] Race: Unknown Additional ID: [id number] Contact details Address: [address] [place] [address] [place] [facility] [place] [place]: [address] Past Medical History Allergies Allergen Reaction Date Comments Reported Other allergy 08/02/2017 codeine, PCN Other allergy 08/16/2017 pcn, codeine Other allergy 10/27/2017 PCN, CODEINE Admission Admission Data Admission Date: 10/27/2017 Admission Time: 10:39 Height (in.): 5 BSA: 0.32 (m2) Height (cm.): 12.7 BMI: 6355.75 (kg/m2) Weight (lbs.): 226 Weight (kg.): 102.51 Procedure Procedure Types Cath Procedure Miscellaneous Procedures Moderate Sedation up to 45 minutes Peripheral vascular Intervention Stent Stent-Fem/Popw/plasty Procedure Description Procedure Date Procedure Date: 10/27/2017 Procedure Start Time: 14:35 Procedure End Time: 15:19 Procedure Staff Name Function Jose Chaves MD Performing Physician Karey Mariee RT Monitor Krissy Khan RT Scrub Chelita Fajardo RN Nurse Farhat Mckenzie RN Supervisor Net Making Cornelius Knox RN Nurse Procedure Data Cath Procedure Contrast Material Contrast Material Type Amount (ml) Isovue 300 79 Entry Location Entry Primary Successful Side Size Upsize Upsize Entry Closure Succes sful Closure Location (Fr) 1 (Fr) 2 (Fr) Remarks Device Remarks Femoral Right 6 Fr 6 Fr artery Short Long Estimated blood loss: 10 ml Diagnostic catheters Device Type Used For End Catheter Placement DIAGNOSTIC IMT 5Fr Procedure Catheter ([id number]) Procedure Complications No complications Procedure Medications Medication Administration Route Dosage 0.9% NaCl I.V. 100 ml/hr Oxygen NC 2 l/min Lidocaine 2% added to field 20 Heparin Flush Bag added to field 2 bags (1000units/500ml NS) Versed I.V. 2 mg Fentanyl I.V. 100 mcg Versed I.V. 2 mg Fentanyl I.V. 100 mcg Fentanyl I.V. 50 mcg Versed I.V. 1 mg Fentanyl I.V. 50 mcg Versed I.V. 2 mg Versed I.V. 1 mg Fentanyl I.V. 100 mcg Versed I.V. 1 mg Fentanyl I.V. 50 mcg Fentanyl I.V. 50 mcg Versed I.V. 1 mg Heparin Bolus 7000 units Plavix P.O. 75 mg Hemodynamics Rest BSA: 0.32 (m2) O2 Consumption: Estimated: 35.45 (ml/min) O2 Consumption indexed: Estimated:110.78 (ml/min/m) Heart Rate: 108 (bpm) Snapshots Pre Cath Intra NCS Post Cath Vital Signs Time Heart Resp SPO2 etCO2 NIBP (mmHg) Rhythm Pain Sedation Rate (ipm) (%) (mmHg) Status Level (bpm) 14:17:10 110 16 100 38.6 167/112(141) NSR 0 (11) 10(A) , No pain 14:22:09 113 15 100 36.3 179/109(142) NSR 0 (11) 10(A) , No pain 14:27:08 105 15 100 37.9 165/92(128) NSR 0 (11) 10(A) , No pain 14:32:01 98 22 99 38.6 151/86(122) NSR 0 (11) 10(A) , No pain 14:36:52 98 17 97 37.9 129/85(102) NSR 0 (11) 10(A) , No pain 14:41:39 99 18 99 39.4 139/83(118) NSR 0 (11) 10(A) , No pain 14:46:23 99 16 97 32.6 126/89(115) NSR 0 (11) 10(A) , No pain 14:51:08 99 15 97 34.9 119/91(114) NSR 0 (11) 10(A) , No pain 14:56:48 105 18 98 40.9 145/93(119) NSR 0 (11) 10(A) , No pain 15:01:41 102 19 98 41.6 147/87(110) NSR 0 (11) 10(A) , No pain 15:06:28 101 15 97 39.4 121/94(116) NSR 0 (11) 10(A) , No pain 15:11:55 107 16 98 37.9 134/92(125) NSR 0 (11) 10(A) , No pain 15:16:44 106 16 98 39.4 132/91(123) NSR 0 (11) 10(A) , No pain Medications Time Medication Route Dose Verified Delivered Reason Not es Effectiveness by by 14:16:39 0.9% NaCl I.V. 100ml/hr Jose Chelita used for Anastacio Fajardo RN procedure 14:16:48 Oxygen NC 2 l/min Jose Chelita Per physician Anastacio Fajardo RN 14:16:56 Lidocaine 2% added 20ml Jose Jose for local to vial Anastacio Chaves MD anesthetic field 14:17:03 Heparin Flush added 2 bags Jose Jose used for Bag to Anastacio Chaves MD procedure (1000units/500ml field NS) 14:23:01 Fentanyl I.V. 100 mcg Jose Chelita for sedation Anastacio Fajardo RN 14:23:55 Versed I.V. 2 mg Jose Chelita for sedation Anastacio Fajardo RN 14:31:24 Versed I.V. 2 mg Jose Chelita for sedation Anastacio Fajardo RN 14:31:28 Fentanyl I.V. 100 mcg Jose Chelita for sedation Anastacio Fajardo RN 14:34:13 Fentanyl I.V. 50 mcg Jose Chelita for sedation Anastacio Fajardo RN 14:34:19 Versed I.V. 1 mg Jose Chelita for sedation Anastacio Fajardo RN 14:46:09 Fentanyl I.V. 50 mcg Jose Chelita for sedation Anastacio Fajardo RN 14:46:16 Versed I.V. 2 mg Jose Chelita for sedation Anastacio Fajardo RN 14:48:36 Versed I.V. 1 mg Jose Chelita for sedation Anastacio Fajardo RN 14:48:42 Fentanyl I.V. 100 mcg Jose Chelita for sedation Anastacio Fajardo RN 14:58:23 Versed I.V. 1 mg Jose Chelita for sedation Anastacio Fajardo RN 14:58:27 Fentanyl I.V. 50 mcg Jose Chelita for sedation Anastacio Fajardo RN 15:00:24 Fentanyl I.V. 50 mcg Jose Chelita for sedation Anastacio Fajardo RN 15:00:29 Heparin Bolus 7000 Jose Chelita for colette ified units Anastacio Fajardo RN anticoagulation by 15:00:30 Versed I.V. 1 mg Jose Chelita for sedation Anastacio Fajardo RN 15:18:26 Plavix P.O. 75 mg Jose Chelita for Anastacio Fajardo RN antiplatelet therapy Procedure Log Time Note 14:05:20 Farhat Mckenzie RN sent for patient. Start room use. 14:05:21 Time tracking: Regular hours 14:05:25 Plan of Care:Hemodynamics will remain stable., Cardiac rhythm will remain stable., Comfort level will be maintained., Respiratory function will remain adequate., Patient/ family verbilizes understanding of procedure., Procedure tolerated without complication., Recovers from procedure without complications.. 14:09:47 Patient received from Pre/Post Procedure Room to [facility] 1 Alert and oriented. Tansferred to table in Supine position. 14:09:48 Warm blankets applied, and nabor hugger turned on for patient comfort. 14:09:48 Correct patient and procedure confirmed by team. 14:09:51 Signed procedure consent form obtained from patient. 14:09:53 ECG and BP/O2 sat monitors applied to patient. 14:15:57 Vital chart was started 14:16:39 0.9% NaCl 100ml/hr I.V. was administered by Chelita Fajardo RN; used for procedure; 14:16:48 Oxygen 2 l/min NC was administered by Chelita Fajardo RN; Per physician; 14:16:56 Lidocaine 2% 20ml vial added to field was administered by Jose Chaves MD; for local anesthetic; 14:17:03 Heparin Flush Bag (1000units/500ml NS) 2 bags added to field was administered by Jose Chaves MD; used for procedure; 14:19:10 Baseline sample Acquired. 14:19:15 Rhythm: sinus tachycardia 14:19:17 Full Disclosure recording started 14:19:56 H&P Date Dictated: 10/15/2017 Within 30 days and on chart., H&P Addendum completed by physician on day of procedure. (MUST COMPLETE FOR ALL OUTPATIENTS). 14:19:57 Pre-procedure instructions explained to patient. 14:19:58 Pre-op teaching completed and patient verbalized understanding. 14:20:07 Family in patients room. 14:20:09 Patient NPO since Midnight. 14:20:23 Patient allergic to Other allergyPCN, CODEINE 14:20:27 Is the patient allergic to Iodine/contrast media? No. 14:20:30 Is patient on blood thinner?Yes 14:20:33 ACC The patient was administered the following blood thiners within the last 24 hours: ACCPlavix 14:20:52 Patient diabetic? Yes. 14:20:53 If diabetic: On Metformin? Yes 14:21:00 If on Metformin: Last Dose? 10/24/2017 14:21:04 Patient not . Patient has had hysterectomy. 14:21:09 Previous problem with sedation/anesthesia? No ? 14:21:11 Snore? Yes 14:21:12 Sleep apnea? No 14:21:13 Deviated septum? No 14:21:15 Opens mouth fully? Yes 14:21:15 Sticks out tongue? Yes 14:21:18 Airway obstruction? No ? 14:21:20 Dentures? No ? 14:21:23 Pre procedure: right dorsailis pedis pulse 2+ Normal; easily identifiable; not easily obliterated 14:21:26 Patient pain scale 0/10 ?. 14:21:40 IV patent on arrival in left forearm with 0.9% NaCl at [facility]. 14:21:47 Bilateral groins area was prepped with chlora-prep and draped in sterile fashion 14:21:49 Alarms reviewed by R. N. 14:21:49 Sharps counted by scrub and verified by R.N. 14:21:51 --------ALL STOP TIME OUT------ 14:21:51 Final Timeout: patient, procedure, and site verified with staff and physician. All members of the team are in agreement. 14:21:53 Bilateral groins site verified by team. 14::57 Physical assessment completed. ASA score P 2 - A patient with mild systemic disease as per Jose Chaves MD. 14:22:01 Sedation plan: IV Moderate Sedation Medication:Versed, Fentanyl 14:22:27 Use device set CATH PACK 14:22:30 ACIST Syringe (62932) opened to sterile field. 14:22:31 ACIST Hand Control (82676) opened to sterile field. 14:22:31 ACIST Manifold (04433) opened to sterile field. 14:22:32 Medline Cath Pack ([id number]) opened to sterile field. 14:22:33 Bag Decanter (2002S) opened to sterile field. 14:22:33 DIAGNOSTIC WIRE .035 260cm J wire (044909) opened to sterile field. 14:23:01 Fentanyl 100 mcg I.V. was administered by Chelita Fajardo RN; for sedation; 14:23:55 Versed 2 mg I.V. was administered by Chelita Fajardo RN; for sedation; 14:24:55 SHEATH 6FR Destination (RSR01) opened to sterile field. 14:24:56 GLIDE WIRE ANGLE 260cm (VQ1316) opened to sterile field. 14:25:51 Patient Height : 5 inches 14:25:54 Patient Weight : 226 lbs 14:30:09 TORQUE DEVICE PLASTIC .038 ( TD01) opened to sterile field. 14:30:26 Zero performed for pressure channel P1 14:30:45 Zero performed for pressure channel P1 14:30:57 Zero performed for pressure channel P1 14:31:24 Versed 2 mg I.V. was administered by Chelita Fajardo RN; for sedation; 14:31:28 Fentanyl 100 mcg I.V. was administered by Chelita Fajardo RN; for sedation; 14:34:13 Fentanyl 50 mcg I.V. was administered by Chelita Fajardo RN; for sedation; 14:34:19 Versed 1 mg I.V. was administered by Chelita Fajardo RN; for sedation; 14:35:00 SHEATH 6FR Saxton (YAB985) opened to sterile field. 14:35:03 Procedure started. 14:35:07 Local anesthetic to right femoral artery with Lidocaine 2% by Jose Chaves MD.INITIAL ACCESS ONLY 14:37:41 A 6 Fr Short sheath was inserted into the Right Femoral artery 14:38:34 A DIAGNOSTIC IMT 5Fr Catheter ([id number]) was advanced over the wire and used for Procedure. 14:39:37 CATHETER USED TO ADVANCE WIRE AROUND THE HORN 14:39:42 Catheter removed. 14:39:50 Sheath upsized to a 6 Fr Long. 14:39:52 LEFT EXTERNAL ILIAC ANGIOGRAPHY PERFORMED 14:46:09 Fentanyl 50 mcg I.V. was administered by Chelita Fajardo RN; for sedation; 14:46:16 Versed 2 mg I.V. was administered by Chelita Fajardo RN; for sedation; 14:48:36 Versed 1 mg I.V. was administered by Chelita Fajardo RN; for sedation; 14:48:42 Fentanyl 100 mcg I.V. was administered by Chelita Fajardo RN; for sedation; 14:58:23 Versed 1 mg I.V. was administered by Chelita Fajardo RN; for sedation; 14:58:27 Fentanyl 50 mcg I.V. was administered by Chelita Fajardo RN; for sedation; 15:00:24 Fentanyl 50 mcg I.V. was administered by Chelita Fajardo RN; for sedation; 15:00:29 Heparin Bolus 7000 units was administered by Chelita Fajardo RN; for anticoagulation; verified by 15:00:30 Versed 1 mg I.V. was administered by Chelita Fajardo RN; for sedation; 15:04:46 INFLATOR Merit BasixCompak (XQ1651) opened to sterile field. 15:06:51 Inflation Number: 1 A LAURA 7 x 59 x 80 stent ([id number]) was prepped and advanced across the Mid External Iliac, Left. The stent was deployed at 8 MILTON for 0:10 (min:sec). 15:08:55 Stent catheter was removed intact over wire. 15:11:37 DESTINATION 6F REMOVED AND PINNACLE 6F BACK ON TO EXOSEAL 15:11:50 EXOSEAL 6Fr (EX600) opened to sterile field. 15:13:11 Procedure ended.(Physican Out) 15:13:56 Contrast amount:Isovue 300 79ml. 15:14:15 Post-op/insertion site Right Femoral artery dressed using a 4 x 4 and Tegaderm. 15:14:20 Post right femoral artery:stable, soft, clean and dry 15:14:25 Post procedure: right dorsailis pedis pulse 2+ Normal; easily identifiable; not easily obliterated. 15:14:27 Post-procedure physical assessment completed. ASA score P 2 - A patient with mild systemic disease as per Jose Chaves MD. 15:14:31 Post procedure rhythm: unchanged. 15:14:33 Estimated blood loss: 10 ml 15:16:33 Post procedure instruction explained to patient.Patient verbalizes understanding. 15:16:34 Patient needs reinforcement of post procedure teaching. 15:17:01 Procedure type changed to Cath procedure, Miscellaneous Procedures, Moderate Sedation up to 45 minutes, Peripheral vascular Intervention, Stent, Stent-Fem/Popw/plasty 15:18:21 PERCUTANEOUS ENTRY 19GA needle opened to sterile field. 15:18:26 Plavix 75 mg P.O. was administered by Chelita Fajardo RN; for antiplatelet therapy; 15:18:33 Procedure and supply charges have been captured, reviewed, submitted and are correct. 15:18:35 Procedure Complication : No complications 15:19:30 Vital chart was stopped 15:19:30 See physician's report for complete and final results. 15:19:32 Report given to Pre/Post Procedure Room. 15:19:36 Patient transfered to Pre/Post Procedure Room with Bed. 15:19:37 Procedure ended. 15:19:37 Full Disclosure recording stopped 15:19:43 End room use (Document Last) Intervention Summary Intervention Notes Time ActionType Lesion and Equipment Action# Pressure Duration Attributes Used 15:06:51 Place stent Mid LAURA 7 x 1 8 00:10 External 59 x 80 Iliac, Left stent ([id number]) Device Usage Item Name Manufacture Quantity Catalog Number Hospital Part Current Mini mal Lot# / Charge Number Stock Stock Serial# Code ACIST Acist 1 02997 705938 834586 018292 20 Syringe Balluun (85433) Systems Inc ACIST Hand Acist 1 18097 974637 129719 883478 5 Control Medical (06886) Systems Inc ACIST Acist 1 19162 848616 872584 372298 5 Manifold Balluun (69673) Systems Inc Medline Cath Cardinal 1 [id number] 637978 87874 926126 5 Pack Health ([id number]) Bag Decanter Microtek 1 2001S 926787 34704 368787 5 (2001S) Medical Inc. DIAGNOSTIC St Octavio 1 751782 547075 381554 037087 30 WIRE .035 260cm J wire (390821) SHEATH 6FR Terumo 1 RSR01 289786 69108 536702 5 Destination (RSR01) GLIDE WIRE Terumo 1 BU8790 685124 168497 510145 5 ANGLE 260cm (WW1381) TORQUE [place] 1 TD01 834688 780616 333028 5 DEVICE Scientific PLASTIC .038 ( TD01) SHEATH 6FR Terumo 1 QJE167 432291 381368 523809 40 Saxton (ZAQ568) DIAGNOSTIC [place] 1 [id number] 653418 732659 48936 5 IMT 5Fr Scientific Catheter ([id number]) INFLATOR [facility] 1 IG6009 626132 560786 543062 15 [facility] Medical BasixCompak (HZ5289) LAURA 7 x Cardinal 1 [id number] 469958 760605 5 [id number] 59 x 80 Health stent ([id number]) EXOSEAL 6Fr Cardinal 1 EX600 702744 303302 726297 10 (EX600) Health PERCUTANEOUS [facility] 1 R28253 206786 992330 5 ENTRY 19GA needle Signature Audit [place] Stage Time Signature Unsigned Intra-Procedure 10/27/2017 Karey Mariee 3:20:00 PM RT(R) Signatures Monitor : Karey Mariee Signature : RT Date : Time : [place] [address] [facility] [place] [address]
[2017-10-27 11:41] VITALS: BP 148/88; Ht 152.4 cm; Wt 102.3 kg
[2017-10-27 12:18] LABS: BASOPHILS 0.3 % (0-2); HEMATOCRIT 43.1 % (36.0-48.0); HEMOGLOBIN 13.7 g/dL (12-16); IMMATURE GRANULOCYTES 0.3 % (0-5); LYMPHOCYTES 30.5 % (15-50); MCH 26.6 pg (26.0-34.0); MCHC 31.8 g/dL (31.0-37.0); MCV 83.7 fL (80.0-100.0); MEAN PLATELET VOLUME 8.9 fL (7.4-10.4); MONOCYTES 7.9 % (2-11); PLATELET COUNT 304 10x3/uL (130-400); RBC 5.15 10x6/uL (4.00-5.40); RDW 15.6 % (11.5-14.5)
[2017-10-27 12:25] LABS: CALCIUM 8.6 mg/dL (8.5-10.1); CARBON DIOXIDE 27.6 mmol/L (21.0-32.0); CREATININE - SERUM 0.9 mg/dL (0.6-1.3); POTASSIUM - SERUM 3.6 mmol/L (3.5-5.1)
== END 2017-10-27 19:25 | disposition home or self-care (01) ==
LOC: D.CATH 10:39
PROVIDERS: Internal Medicine Cardiovascular Disease
DX: I70.219 Atherosclerosis of native arteries of extremities with intermittent claudication, unspecified extremity (principal); I10 Essential (primary) hypertension; E11.9 Type 2 diabetes mellitus without complications; Z87.891 Personal history of nicotine dependence; Z01.812 Encounter for preprocedural laboratory examination

== ENCOUNTER 2017-12-07 10:39 | Emergency (ER) | payer OTHER ==
[2017-10-27 11:41] VITALS: BMI 44.0
[2017-12-07 11:11] LABS: APPEARANCE CLEAR (CLEAR); BILIRUBIN NEGATIVE (NEGATIVE); COLOR YELLOW (YELLOW); GLUCOSE NEGATIVE (NEGATIVE); KETONE NEGATIVE (NEGATIVE); NITRITE NEGATIVE (NEGATIVE); PROTEIN NEGATIVE (NEGATIVE); SPECIFIC GRAVITY 1.015 (1.005-1.020); UROBILINOGEN NORMAL (NORMAL)
[2017-12-08] MEDS ORDERED: ULTRAM50 MG PO (19:08)
[2017-12-08] MEDS ORDERED: IBUPROFEN800 MG PO (19:08)
[2017-12-08] MEDS ORDERED: NORCO 7.5/325 T1 TA1 PO (19:09)
[2017-12-10] MEDS ORDERED: BAYER CHEWABLE81 MG PO (13:51)
== END 2017-12-07 11:36 | disposition home or self-care (01) ==
LOC: D.ER 10:39
PROVIDERS: Emergency Medicine
DX: M54.5 Low back pain (principal); G89.29 Other chronic pain; I10 Essential (primary) hypertension; E11.9 Type 2 diabetes mellitus without complications

== ENCOUNTER 2017-12-08 11:03 | Outpatient (CLI) | payer OTHER ==
[~2017-12-08] VITALS: Ht 152.4 cm; Wt 103.2 kg
--- NOTE | ~2017-12-08 | OP ---
PATIENT NAME: SRINIVAS BOLDEN MEDICAL RECORD: [id number] :62 LOCATION:D.M2 D.2114 ADMISSION DATE:12/08/17 SURGEON: BELTRAN PLATA MD DATE OF OPERATION: 12/08/2017 PROCEDURES: 1. PTCA stent LAD. 2. Left heart catheterization. 3. Selective coronary angiography. 4. Left ventriculogram. INDICATION: Angina and coronary artery disease. PROCEDURE IN DETAIL: After informed consent was obtained and after detailed explanation of risks, benefits as well as alternative therapies, the patient elected to proceed with angiogram and angioplasty. The left femoral area was prepped and draped in normal sterile fashion. Left femoral artery was cannulated via modified Seldinger technique with placement of 6-Kosovan sheath. All catheters exchanged through this sheath. FINDINGS: Left ventriculogram was performed in standard 30-degree SEPULVEDA view reveals good cardiac wall motion throughout all segments. Overall ejection fraction estimated at 60%. SELECTIVE CORONARY ANGIOGRAPHY: 1. Left main showed no significant angiographic disease. 2. Left anterior descending has a 95% to 99% stenosis at the ostium. 3. Left circumflex has moderate irregularities, but no flow-limiting stenosis. 4. Right coronary has a long area of 80% stenosis proximally. PTCA STENT OF THE LAD: The stent used was a 3.0 x 8 mm Bonaparte. Result was 0% residual stenosis. OVERALL IMPRESSION: Successful percutaneous transluminal coronary angioplasty stent of the left anterior descending going from 99% initial stenosis to 0% residual. PLAN: PTCA stent of the RCA in the near future. TRANSINT:[id number] Voice Confirmation ID: [id number] DOCUMENT ID: [id number] BELTRAN PLATA MD at 1153 CC: [id number] DICTATION DATE: 12/08/17 1641 ALIGNER BARREL AND RECEIVER: 12/08/17 1844 DIS IN 12/09/17 [place] [id number] [place] [id number]
--- NOTE | ~2017-12-08 | HEMODYNAMI ---
PATIENT:SRINIVAS BOLDEN MEDICAL RECORD: [id number] : 62 [id number] ADMISSION DATE: 12/08/17 Generatedon:12/08/201716:37 Patient name: SRINIVAS BOLDEN Patient #: [id number] SSN: : 1960 Date of study: 12/08/2017 Page: Of Hemodynamic Procedure Report Patient Data Patient Demographics Procedure consent was obtained First Name: SRINIVAS Gender: Female Last Name: YUAN : 1960 Middle Initial: SHARATH Age: 57 year(s) Patient #: [id number] Race: Unknown Additional ID: [id number] Contact details Address: [address] [place] [address] lane State: [place]: [facility] [place] code: [address] Past Medical History Allergies Allergen Reaction Date Comments Reported Other allergy 08/02/2017 codeine, PCN Other allergy 08/16/2017 pcn, codeine Other allergy 10/27/2017 PCN, CODEINE Other allergy 12/08/2017 CODEINE, NORVASC Admission Admission Data Admission Date: 12/08/2017 Admission Time: 11:03 Admit Source: Emergency department Lab Results Lab Result Date: 12/08/2017 Lab Result Time: 11:45 Biochemistry Name Units Result Min Max BUN mg/dl 19 --(----)*- 7 18 Creatinine mg/dl 0.6 --(*---)-- 0.6 1.3 CBC Name Units Result Min Max Hematocrit % 45 --(*---)-- 42 54 Hemoglobin g/dl 15.3 --(-*--)-- 13.5 17.5 Procedure Procedure Types Cath Procedure Diagnostic Procedure Sedation Charges Moderate Sedation up to 15 minutes [facility] w/Coronaries PCI Procedure Coronary Stent Coronary Stent Initial Peripheral Cath Diagnostic Procedure Cath Peripheral Nnyor-Joohupz-Ubx-Off Procedure Description Procedure Date Procedure Date: 12/08/2017 Procedure Start Time: 16:11 Procedure End Time: 16:36 Procedure Staff Name Function Jp Chilel MD Performing Physician Troy Colon RT Monitor Karey Mariee RT Monitor Ragini Moreno RN Nurse Rafael Renner RT Scrub Procedure Data Cath Procedure Fluoroscopy Diagnostic fluoroscopy Total fluoroscopy Time: 5.4 time: 5.4 min min Diagnostic fluoroscopy Total fluoroscopy dose: dose: 2056 mGy 2056 mGy Contrast Material Contrast Material Type Amount (ml) Isovue 300 254 Entry Location Entry Primary Successful Side Size Upsize Upsize Entry Closure Succes sful Closure Location (Fr) 1 (Fr) 2 (Fr) Remarks Device Remarks Femoral Left 5 Fr 6 Fr Exoseal artery Short Estimated blood loss: 10 ml Diagnostic catheters Device Type Used For End Catheter Placement MULTIPACK Pigtail 5 Fr Procedure catheter MULTIPACK JL 4.0 5Fr Procedure catheter MULTIPACK 3DRC 5Fr Procedure catheter DIAGNOSTIC JL 3.5 5Fr Procedure catheter ([id number]) Procedure Complications No complications Procedure Medications Medication Administration Route Dosage Oxygen NC 2 l/min Lidocaine 2% added to field 20 Heparin Flush Bag added to field 2 bags (1000units/500ml NS) 0.9% NaCl I.V. 100 ml/hr Plavix P.O. 75 mg Versed I.V. 2 mg Fentanyl I.V. 100 mcg Heparin Bolus I.V. 5000 units Lopressor I.V. 5 mg Versed I.V. 2 mg Fentanyl I.V. 100 mcg Lopressor I.V. 5 mg Versed I.V. 2 mg Fentanyl I.V. 100 mcg Hemodynamics Rest HGB: 15.3 (g/dl) Heart Rate: 113 (bpm) Pressure Samples Time Site Value (mmHg) Purpose Heart Use Rate(bpm) 16:16 AO 130/64(86) Snapshot 110 16:16 AO 115/23(58) Snapshot 111 16:22 AO 189/112(138) Snapshot 121 Snapshots Pre Cath Intra NCS Post Cath Vital Signs Time Heart Resp SPO2 etCO2 NIBP (mmHg) Rhythm Pain Sedation Rate (ipm) (%) (mmHg) Status Level (bpm) 16:03:10 119 29 96 0 96/78(90) NSR 0 (11) 10(A) , No pain 16:10:36 109 26 98 36.7 Out of range NSR 0 (11) 10(A) , No pain 16:12:20 108 35 99 35.9 216/147(150) NSR 0 (11) 10(A) , No pain 16:16:55 105 24 98 36 106/75(93) NSR 0 (11) 10(A) , No pain 16:20:46 120 17 99 23.9 121/89(104) NSR 0 (11) 10(A) , No pain 16:24:42 117 22 98 33.7 127/93(109) NSR 0 (11) 10(A) , No pain 16:28:44 101 32 95 33.7 112/81(94) NSR 0 (11) 10(A) , No pain 16:32:37 96 26 96 32.2 122/90(105) NSR 0 (11) 10(A) , No pain 16:36:18 91 24 98 36 121/92(107) NSR 0 (11) 10(A) , No pain Medications Time Medication Route Dose Verified Delivered Reason Notes Effectiveness by by 16:05:45 Oxygen NC 2 Jp Buffie used for l/min Getachew Moreno RN procedure 16:05:52 Lidocaine 2% added 20ml Jp Jp for local to vial Getachew Chilel MD anesthetic field 16:05:59 Heparin Flush added 2 Jp Jp used for Bag to bags Getachew Chilel MD procedure (1000units/500ml field NS) 16:06:11 0.9% NaCl I.V. 100 Jp Buffie Per physician ml/hr Getachew Moreno RN 16:08:07 Plavix P.O. 75 mg Jp Buffie for Getachew Moreno RN antiplatelet therapy 16:10:04 Versed I.V. 2 mg Jp Buffie for sedation Getachew Moreno RN 16:10:09 Fentanyl I.V. 100 Jp Buffie for sedation mcg Getachew Moreno RN 16:16:02 Versed I.V. 2 mg Jp Buffie for sedation Getachew Moreno RN 16:16:05 Fentanyl I.V. 100 Jp Buffie for sedation mcg Getachew Moreno RN 16:18:02 Lopressor I.V. 5 mg Jp Buffie Per physician Getachew Moreno RN 16:21:09 Heparin Bolus I.V. 5000 Jp Buffie for verifi ed units Getachew Moreno RN anticoagulation with dr chilel 16:23:42 Versed I.V. 2 mg Jp Eid for sedation Getachew Moreno RN 16:23:45 Fentanyl I.V. 100 Jp Eid for sedation mcg Getachew Moreno RN 16:31:44 Lopressor I.V. 5 mg Jp Eid Per physician Getachew Moreno RN Procedure Log Time Note 15:25:55 Informed consent obtained and on chart 15:26:05 Admit Source: Emergency department 15:29:19 Diagnostic Cath status Elective 15::26 Time tracking: Regular hours 15:29:30 Plan of Care:Hemodynamics will remain stable., Cardiac rhythm will remain stable., Comfort level will be maintained., Respiratory function will remain adequate., Patient/ family verbilizes understanding of procedure., Procedure tolerated without complication., Recovers from procedure without complications.. 15:33:22 Lab Result : Hemoglobin 15.3 g/dl 15:33:22 Lab Result : Hematocrit 45 % 15:33:22 Lab Result : Creatinine 0.6 mg/dl 15:33:22 Lab Result : BUN 19 mg/dl 15:38:58 Karey Mariee RT(R) sent for patient. Start room use. 15:47:06 Patient allergic to Other allergyCODEINE, NORVASC 15:48:18 Patient received from ED to CCL 2 Alert and oriented. Tansferred to table in Supine position. 15:48:19 Warm blankets applied, and nabor hugger turned on for patient comfort. 15:48:19 Correct patient and procedure confirmed by team. 15:48:20 ECG and BP/O2 sat monitors applied to patient. 15:55:17 Vital chart was started 15:55:23 Baseline sample Acquired. 15:55:30 Rhythm: sinus tachycardia 15:56:50 H&P Date Dictated: 12/08/2017 New H&P dictated by physician.. 15:56:51 Pre-procedure instructions explained to patient. 15:56:52 Pre-op teaching completed and patient verbalized understanding. 15:56:54 Family in waiting room. 15:56:56 Patient NPO since Midnight. 15:56:59 Is the patient allergic to Iodine/contrast media? No. 15:57:00 Is patient on blood thinner?Yes 15:57:02 ACC The patient was administered the following blood thiners within the last 24 hours: ACCPlavix 15:57:03 Patient diabetic? Yes. 15:57:04 If diabetic: On Metformin? Yes 15:57:07 If on Metformin: Last Dose? 12/07/2017 15:57:10 Previous problem with sedation/anesthesia? No ? 15:57:11 Snore? Yes 15:57:12 Sleep apnea? No 15:57:12 Deviated septum? No 15:57:13 Opens mouth fully? Yes 15:57:14 Sticks out tongue? Yes 15:57:15 Airway obstruction? No ? 15:57:17 Dentures? No MULTIPLE MISSING TEETH. 15:57:35 Pre procedure: right dorsailis pedis pulse 2+ Normal; easily identifiable; not easily obliterated 15:57:37 Pre procedure: left dorsailis pedis pulse 2+ Normal; easily identifiable; not easily obliterated 15:57:39 Patient pain scale 0/10 ?. 15:57:46 IV patent on arrival in right wrist with 0.9% NaCl at O. 15:57:47 Lab results completed and on chart. 15:57:53 Bilateral groins area was prepped with chlora-prep and draped in sterile fashion 15:57:56 Use device set Femoral Dx 15:57:57 ACIST Syringe (47117) opened to sterile field. 15:57:57 Bag Decanter (2002S) opened to sterile field. 15:57:59 ACIST Hand Control (49137) opened to sterile field. 15:57:59 ACIST Manifold (68924) opened to sterile field. 15:58:01 Tegaderm 4 x 4 (1626W) opened to sterile field. 15:58:03 Medline Cath Pack ([id number]) opened to sterile field. 15:58:05 SHEATH 5FR Bunkie (FNH190) opened to sterile field. 15:58:06 DIAGNOSTIC Multipack 5Fr catheter set (NI5397) opened to sterile field. 15:58:07 PERCUTANEOUS ENTRY 19GA needle opened to sterile field. 15:58:08 DIAGNOSTIC WIRE .035 260cm J wire (546157) opened to sterile field. 15:58:15 Alarms reviewed by R. N. 15:58:15 Sharps counted by scrub and verified by R.N. 16:05:45 Oxygen 2 l/min NC was administered by Ragini Moreno RN; used for procedure; 16:05:52 Lidocaine 2% 20ml vial added to field was administered by Jp Chilel MD; for local anesthetic; 16::59 Heparin Flush Bag (1000units/500ml NS) 2 bags added to field was administered by Jp Chilel MD; used for procedure; 16:06:11 0.9% NaCl 100 ml/hr I.V. was administered by Ragini Moreno RN; Per physician; 16:08:07 Plavix 75 mg P.O. was administered by Ragini Moreno RN; for antiplatelet therapy; ::38 Physician arrived 16:: --------ALL STOP TIME OUT------ :38 Final Timeout: patient, procedure, and site verified with staff and physician. All members of the team are in agreement. 16:08:41 Bilateral groins site verified by team. 16:08:43 Physical assessment completed. ASA score P 2 - A patient with mild systemic disease as per Jp Chilel MD. 16:08:46 Sedation plan: IV Moderate Sedation Medication:Versed, Fentanyl 16:10:04 Versed 2 mg I.V. was administered by Ragini Moreno RN; for sedation; 16:10:09 Fentanyl 100 mcg I.V. was administered by Ragini Moreno RN; for sedation; 16:10:15 EF : 60 % 16::59 Procedure started. 16::59 Full Disclosure recording started 16:11:39 Local anesthetic to left femerol artery with Lidocaine 2% by Jp Chilel MD.INITIAL ACCESS ONLY 16:12:56 Zero performed for pressure channel P1 16:13:33 A 5 Fr sheath was inserted into the Left Femoral artery 16:13:41 A MULTIPACK Pigtail 5 Fr catheter was advanced over the wire and used for Procedure. 16:13:50 LV gram done using SEPULVEDA 16:13:55 Injector settings: Ml/sec: 10, Volume: 20, 16:14:31 PIGTAIL PULLED DOWN FOR AFRO 16:14:43 Abdominal angiogram w/ runoff was performed. 16:14:49 Left leg runoff performed. 16:15:27 Right leg runoff performed. 16:15:31 Catheter removed. 16:15:45 A MULTIPACK JL 4.0 5Fr catheter was advanced over the wire and used for Procedure. 16:16:02 Versed 2 mg I.V. was administered by Ragini Moreno RN; for sedation; 16:16:05 Fentanyl 100 mcg I.V. was administered by Ragini Moreno RN; for sedation; 16:17:03 LCA angiography performed. 16:17:25 Catheter removed. 16:17:43 A MULTIPACK 3DRC 5Fr catheter was advanced over the wire and used for Procedure. 16:18:02 Lopressor 5 mg I.V. was administered by Ragini Moreno RN; Per physician; 16:18:19 RCA angiography performed. 16:18:23 Catheter removed. 16:18:57 A DIAGNOSTIC JL 3.5 5Fr catheter ([id number]) was advanced over the wire and used for Procedure. 16:19:18 INFLATOR Merit BasixCompak (CB3030) opened to sterile field. 16:19:27 SHEATH 6FR Bunkie (BRQ985) opened to sterile field. 16:19:31 LCA angiography performed. 16:19:34 Catheter removed. 16:19:52 Sheath upsized to a 6 Fr Short. 16:20:38 GUIDE 6FR EBU 3.0 SH catheter ([id number]) opened to sterile field. 16:20:53 6 Fr EBU 3 SH guide catheter was inserted over the wire 16:21:03 CHOICE PT Extra Support 182cm wire ([id number]) opened to sterile field. 16:21:09 Heparin Bolus 5000 units I.V. was administered by Ragini Moreno RN; for anticoagulation; verified with dr chilel 16:21:11 CHOICE PT ES wire advanced. 16:23:00 Wire advanced across lesion. 16:23:42 Versed 2 mg I.V. was administered by Ragini Moreno RN; for sedation; 16:23:45 Fentanyl 100 mcg I.V. was administered by Ragini Moreno RN; for sedation; 16:26:07 Inflation Number: 1 A MARK RX 3.0 x 08 stent ([id number]) was prepped and advanced across the Prox LAD. The stent was deployed at 11 MILTON for 0:10 (min:sec). 16:26:15 Stent catheter was removed intact over wire. 16:26:15 Wire removed. 16:26:47 CHOICE PT ES 182 wire advanced. 16:28:08 Wire advanced across lesion. 16:29:39 Inflation number: 2 The stent balloon was then re-inflated across the Prox LAD to 17 MILTON for 0:10 (min:sec). 16::59 Stent catheter was removed intact over wire. 16::59 Wire removed. 16::59 Guide catheter removed. 16:30:17 EXOSEAL 6Fr (EX600) opened to sterile field. 16:30:30 Sheath removed intact; hemostasis achieved with Exoseal to the Left Femoral artery. 16:31:09 Procedure ended.(Physican Out) 16:31:44 Lopressor 5 mg I.V. was administered by Ragini Moreno RN; Per physician; 16:32:07 Fluoroscopy time 05.40 minutes. 16:32:11 Fluoroscopy dose: 2055 mGy 16:32:11 Flurop Dose total: 2055 16:32:15 Contrast amount:Isovue 300 254ml. 16:32:20 Post-op/insertion site Left Femoral artery dressed using a 4 x 4 and Tegaderm. 16:32:24 Post left femerol artery:stable, soft, clean and dry 16:33:25 Post-procedure physical assessment completed. ASA score P 2 - A patient with mild systemic disease as per Jp Chilel MD. 16:33:28 Post procedure rhythm: unchanged. 16:33:30 Estimated blood loss: 10 ml 16:33:31 Post procedure instruction explained to patient.Patient verbalizes understanding. 16:33:32 Patient needs reinforcement of post procedure teaching. 16:34:57 Procedure type changed to Cath procedure, Diagnostic procedure, Sedation Charges, Moderate Sedation up to 15 minutes, LHC, C w/Coronaries, PCI procedure, Coronary Stent, Coronary Stent Initial, Peripheral Cath Diagnostic Procedure, Cath Peripheral, Iepww-Rsrqvue-Hfl-Off 16:35:54 Procedure and supply charges have been captured, reviewed, submitted and are correct. 16:35:58 Procedure Complication : No complications 16:36:01 Vital chart was stopped 16:36:02 See physician's report for complete and final results. 16:36:04 Report given to PCU. 16:36:07 Patient transfered to PCU with Bed. 16:36:09 Procedure ended. 16:36:09 Full Disclosure recording stopped 16:36:13 End room use (Document Last) Intervention Summary Intervention Notes Time ActionType Lesion and Equipment Used Action# Pressure Duration Attributes 16:26:07 Place stent Prox LAD MARK RX 3.0 x 1 11 00:10 08 stent ([id number]) 16:29:39 Reinflate Prox LAD MARK RX 3.0 x 2 17 00:10 stent 08 stent balloon ([id number]) Device Usage Item Name Manufacture Quantity Catalog Number Hospital Part Current M inimal Lot# / Charge Number Stock Stock Serial# Code ACIST Syringe Acist 1 10234 678336 998745 234122 2 0 (51757) Medical Systems Inc Bag Decanter Microtek 1 2001S 570198 17292 812767 5 (2001S) Medical Inc. ACIST Hand Acist 1 76554 308850 072351 604269 5 Control Medical (53047) Systems Inc ACIST Manifold Acist 1 27226 547037 324872 831373 5 (15220) Medical Systems Inc Tegaderm 4 x 4 3M 1 1626W 112868 516583 167538 5 (1626W) Medline Cath Cardinal 1 [id number] 799720 05210 398344 5 Cardioxyl Pharmaceuticals ([id number]) SHEATH 5FR Terumo 1 JWL424 824745 096598 713874 4 0 Bunkie (CMN189) DIAGNOSTIC Cardinal 1 ON8501 332334 67635 847135 3 0 Multipack 5Fr Health catheter set (FU2666) PERCUTANEOUS Cook Medical 1 J68169 993115 789427 5 ENTRY 19GA needle DIAGNOSTIC [address] Octavio 1 603758 927979 024641 999275 3 0 WIRE .035 260cm J wire (826209) MULTIPACK Cardinal 1 163874 5 Pigtail 5 Fr Health catheter MULTIPACK JL Cardinal 1 597865 5 4.0 5Fr Health catheter MULTIPACK 3DRC Cardinal 1 266557 5 5Fr catheter Health DIAGNOSTIC JL Cardinal 1 [id number] 333843 387575 066564 5 3.5 5Fr Health catheter (180045J) INFLATOR Merit Merit 1 HI2538 479100 590232 089114 1 5 Cephasonics (SU7319) SHEATH 6FR Terumo 1 NED045 017808 799179 597251 4 0 Bunkie (EIM609) GUIDE 6FR EBU Medtronic 1 [id number] 347286 55951 682381 0 3.0 SH catheter ([id number]) CHOICE PT Towanda 1 [id number] 086883 127098 859872 5 Extra Support Scientific 182cm wire ([id number]) MARK RX 3.0 x Medtronic 1 [id number] 744178 2637012 705550 5 [id number] 08 stent ([id number]) EXOSEAL 6Fr Cardinal 1 EX600 832462 583241 011112 1 0 (EX600) Health Signature Audit [place] Time Signature Unsigned Intra-Procedure 12/08/2017 Karey Mariee 4:37:20 PM RT(R) Signatures Monitor : Tryo Colon RT Signature : Date : Time : Monitor : Karey Mariee Signature : RT Date : Time : [place] [id number] FARHAT BARKER [id number]
--- NOTE | ~2017-12-08 | DS ---
PATIENT:SRINIVAS BOLDEN :62 MEDICAL RECORD: [id number] DISCHARGE SUMMARY ADMISSION DATE: 12/08/17 DISCHARGE DATE: 12/09/17 DATE OF DISCHARGE: 12/09/2017. DIAGNOSES: 1. Unstable angina. 2. Coronary artery disease. 3. Percutaneous transluminal coronary angioplasty stent of left anterior descending this admission. HISTORY: Ms. Bolden presents with anginal symptomatology, found to have critical disease of the LAD and RCA, underwent successful PTCA stent of the LAD, is discharged home with no change in her medications as she is already on aspirin and Plavix. Will be brought back tomorrow for PTCA stent of the RCA as an outpatient. TRANSINT:[id number] Voice Confirmation ID: [id number] DOCUMENT ID: [id number] BELTRAN PLATA MD at 1153 CC: [id number] DICTATION DATE: 12/09/17 09 TRANSITION COACH: 12/09/17 1059 DIS IN 12/09/[address] [facility] [address] [place] [address]
--- NOTE | ~2017-12-08 | CN ---
PATIENT NAME:SRINIVAS BOLDEN MEDICAL RECORD: [id number] : 62 LOCATION:D. D.2114 ADMIT DATE: 12/08/17 ACCOUNT: [id number] CONSULTING PHYSICIAN: BELTRAN PLATA MD REFERRING PHYSICIAN: BELTRAN PLATA MD DATE OF CONSULTATION: 12/08/2017 DIAGNOSES: 1. Unstable angina. 2. Peripheral vascular disease. 3. Hypertension. 4. Hyperlipidemia. 5. Diabetes. HISTORY OF PRESENT ILLNESS: Ms. Bolden presents with greater than 1 hour of very significant chest pain radiated to the jaw, radiating to her arm, this was when she was ambulating. She has also felt more short of breath as of recent. She does have a history of peripheral vascular disease, peripheral stenting. She has been having some claudication as well. REVIEW OF SYSTEMS: The patient reports easy bruising but reports no swollen glands. The patient reports no fever, no night sweats, no significant weight gain, no significant weight loss. No significant exercise tolerance. The patient reports no dry eyes, no irritation, no vision change. Patient reports no difficulty hearing and no ear pain. Patient reports no frequent nose bleeds or nose and sinus problems. Patient reports on arm pain on exertion. No shortness of breath while lying down. No history of heart murmur. Patient reports no cough, no wheezing or coughing up blood. Patient reports no abdominal pain, no vomiting. Normal appetite. No diarrhea and not vomiting blood. No nausea and no constipation. Patient reports no incontinence. No difficulty urinating. No hematuria. No increased frequency. Patient reports no muscle aches. No weakness, no arthralgias, no back pain. No swelling of the extremities. Patient reports no abnormal mole, no jaundice, no rashes. Reports no loss of consciousness. No weakness and no numbness. No seizures, dizziness, or headaches. The patient reports no depression, no sleep disturbance, feeling safe in a relationship and no alcohol abuse. Patient reports on fatigue. Reports no runny nose or sinus pressure. No itching, no hives, and no frequent sneezing. PHYSICAL EXAMINATION: GENERAL APPEARANCE: Well-nourished, well-developed, appears stated age. Level of distress, comfortable. PSYCHIATRIC: Mental status, alert, normal affect. Orientation, oriented to time, place and person. EYES: Lids and conjunctiva, noninjected. No discharge, no pallor. ENT: Lips, teeth, gums, normal dentition. Oropharynx, no cyanosis, no pallor. NECK: Carotid arteries, bilateral normal upstroke, no bruits, no thrills. JUGULAR VEINS: No jugular venous pressure or distention. CERVICAL LYMPH NODES: Nontender, nonenlarged. THYROID: Not enlarged. Nontender. No nodules. LUNGS: Respiratory effort, unlabored. CHEST: Normal curvature. No thoracic deformity. No chest wall tenderness. Percussion, resonant. Auscultation, clear. No wheezes, no rales, no rhonchi. CARDIOVASCULAR: Precordial exam, nondisplaced. No heaves or pericardial thrills. Rate and rhythm, regular. Heart sounds, normal S1, normal S2. No S3, CONSULT REPORT [id number] WATT,SRINIVAS EARLY no gallop, no rub. Systolic murmur, not heard. Diastolic murmur, not heard. EXTREMITIES: No cyanosis, no edema. Peripheral pulses, full and equal in all extremities, except as noted. No bruits appreciated. ABDOMEN: Soft, nondistended. Normal aorta. No bruit. Nontender. No masses. Liver, nontender, no hepatomegaly. Spleen, nontender, no splenomegaly. MUSCULOSKELETAL: No joint tenderness. No joint swelling. No erythema. NEUROLOGICAL: Normal gait, normal strength, normal tone. SKIN: Warm and dry. OVERALL IMPRESSION: Most likely she has hemodynamically significant coronary artery disease where her EKG shows nonspecific ST-T abnormalities. We will proceed with coronary angiography. Further care depends upon findings of the angiography. TRANSINT:[id number] Voice Confirmation ID: [id number] DOCUMENT ID: [id number] BELTRAN PLATA MD at 1153 CC: [id number] DICTATION DATE: 12/08/17 1251 MANUAL LATHE MACHINIST: 12/08/17 1319 DIS IN 12/09/17 [place] [address]
--- NOTE | ~2017-12-08 | OP ---
PATIENT NAME: SRINIVAS BOLDEN MEDICAL RECORD: [id number] :62 LOCATION:D.M2 D.2114 ADMISSION DATE:12/08/17 SURGEON: BELTRAN PLATA MD DATE OF OPERATION: 12/08/2017 PROCEDURES: 1. Aortofemoral runoff. 2. Abdominal aortography. INDICATION: Claudication and peripheral vascular disease. FINDINGS: The abdominal aortography was performed. The catheter was pulled down for aortofemoral runoff. Abdominal aortography reveals no significant abdominal aortic disease. No dissection or aneurysm formation. No renal artery stenosis. RIGHT LEG: A. Iliac: The common internal and external iliacs have moderate irregularities, but no flow-limiting stenosis. B. Femoral system: The common and deep femoral are widely patent. Superficial femoral has previously placed stents, these are widely patent with no significant restenosis, elsewise moderate diffuse disease of the SFA. C. Popliteal and infrapopliteal vessels are patent. There is preserved 3-vessel runoff to the foot, although small and diffusely diseased vessels. LEFT LEG: A. Iliac: The common internal and external iliacs have moderate irregularities, but no flow-limiting stenosis. B. Femoral system: The common and deep femoral are widely patent. Superficial femoral was totally occluded at the ostium, it is a long total occlusion. Distal superficial femoral fills via collaterals off the deep system. The distal superficial femoral is patent. C. Popliteal and infrapopliteal vessels: The popliteal appears to be patent. Anterior tibial appears to be totally occluded. There is 2-vessel runoff through the peroneal and posterior tibial. 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 TRANSINT:[id number] Voice Confirmation ID: [id number] DOCUMENT ID: [id number] BELTRAN PLATA MD at 1153 CC: [id number] DICTATION DATE: 12/08/17 1641 ELECTRONIC GLUING MACHINE OPERATOR: 12/08/17 1846 DIS IN 12/09/17 [facility] [address] [place] [address]
[2017-12-08 11:46] LABS: BASOPHILS 0.1 % (0-2); EOSINOPHILS 0.1 % (0-7); HEMATOCRIT 42.2 % (36.0-48.0); HEMOGLOBIN 13.5 g/dL (12-16); IMMATURE GRANULOCYTES 0.8 % (0-5); LYMPHOCYTES 7.4 % (15-50); MCH 26.6 pg (26.0-34.0); MCV 83.1 fL (80.0-100.0); MEAN PLATELET VOLUME 9.1 fL (7.4-10.4); NEUTROPHILS 86.6 % (40-80); PLATELET COUNT 329 10x3/uL (130-400); RBC 5.08 10x6/uL (4.00-5.40); RDW 16.3 % (11.5-14.5); WBC 15.3 10x3/uL (4.8-10.8)
[2017-12-08 12:01] LABS: ALBUMIN 3.4 g/dL (3.4-5.0); ALKALINE PHOSPHATASE 62 U/L (46-116); ALT (SGPT) 23 U/L (10-68); BILIRUBIN - TOTAL 0.28 mg/dL (0.2-1.3); CALC OSMOLALITY 285 mosm/kg (275-300); CALCIUM 9.5 mg/dL (8.5-10.1); CHLORIDE - SERUM 101 mmol/L (98-107); POTASSIUM - SERUM 3.8 mmol/L (3.5-5.1); PROTEIN - SERUM 8.1 g/dL (6.4-8.2); SODIUM 137 mmol/L (136-145); UREA NITROGEN 22 mg/dL (7-18); eGFR NON AFRICAN AMERICAN 61 mL/min (90-120)
[2017-12-08 12:03] LABS: GLUCOSE 267 mg/dL (74-106)
[2017-12-08 12:11] LABS: CKMB 0.6 U/L (0.0-3.6); CREATINE KINASE 64 UL (21-215)
[2017-12-08 12:12] LABS: TROPONIN-I < 0.017 ng/mL (0.000-0.060)
[2017-12-08 17:14] VITALS: BP 135/60; Ht 152.4 cm; Wt 103.2 kg
[2017-12-08] MEDS ORDERED: ULTRAM50 MG PO (19:08)
[2017-12-08] MEDS ORDERED: IBUPROFEN800 MG PO (19:08)
[2017-12-08] MEDS ORDERED: NORCO 7.5/325 T1 TA1 PO (19:09)
[2017-12-08 20:12] VITALS: BP 113/60
[2017-12-09 02:32] VITALS: BP 151/73
[2017-12-09 06:23] VITALS: BP 117/62
[2017-12-09 07:39] VITALS: BP 119/70
[2017-12-10] MEDS ORDERED: BAYER CHEWABLE81 MG PO (13:51)
== END 2017-12-09 10:34 | disposition home or self-care (01) ==
LOC: OBSVTIME → D.CATH 11:03 → D.ER 11:03 → EDSTATUS 13:45 → D.M2 16:54 → OBSVTIME 16:55 → D.CATH 16:55 → D.M2 16:55 → D.CATH 12-09 10:34 → D.M2 12-09 10:34
PROVIDERS: Emergency Medicine
DX: I25.110 Atherosclerotic heart disease of native coronary artery with unstable angina pectoris (principal); I70.213 Atherosclerosis of native arteries of extremities with intermittent claudication, bilateral legs; I75.022 Atheroembolism of left lower extremity; I10 Essential (primary) hypertension; E78.5 Hyperlipidemia, unspecified; E11.9 Type 2 diabetes mellitus without complications; Z79.82 Long term (current) use of aspirin; Z79.02 Long term (current) use of antithrombotics/antiplatelets; Z01.812 Encounter for preprocedural laboratory examination

== ENCOUNTER → 2017-12-10 08:56 | Outpatient (CLI) | payer OTHER ==
[~2017-12-10] VITALS: Ht 152.4 cm; Wt 102.7 kg
--- NOTE | ~2017-12-10 | OP ---
PATIENT NAME: SRINIVAS BOLDEN MEDICAL RECORD: [id number] :62 LOCATION:D.CAT ADMISSION DATE: SURGEON: BELTRAN PLATA MD DATE OF OPERATION: 12/10/2017 PROCEDURES: 1. PTCA stent RCA. 2. Selective coronary angiography. INDICATION: Angina and coronary artery disease. PROCEDURE IN DETAIL: After informed consent was obtained and after detailed explanation of risks and benefits as well as alternative therapies, the patient elected to proceed with angiogram and angioplasty. The right radial area is prepped and draped in normal sterile fashion, right radial artery was cannulated via modified Seldinger technique with placement of 6-Mohawk sheath. All catheters exchanged through this sheath. FINDINGS: The right coronary has a long area of 80% stenosis proximally. This was addressed with a 3.5 x 38 and 3.5 x 12, both Pierce stents. Result was 0% residual stenosis. OVERALL IMPRESSION: Successful percutaneous transluminal coronary angioplasty stent of the right coronary artery going from 80% initial stenosis to 0% residual. TRANSINT:[id number] Voice Confirmation ID: [id number] DOCUMENT ID: [id number] BELTRAN PLATA MD at 1202 CC: [id number] DICTATION DATE: 12/10/17 1316 IT DISASTER RECOVERY MANAGER: 12/10/17 1344 DEP CLI 12/10/[address] [address]
--- NOTE | ~2017-12-10 | HEMODYNAMI ---
PATIENT:SRINIVAS BOLDEN MEDICAL RECORD: [id number] : 62 LOCATION:[facility] ADMISSION DATE: 12/10/17 Generatedon:12/10/201713:19 Patient name: SRINIVAS BOLDEN Patient #: [id number] SSN: : 1960 Date of study: 12/10/2017 Page: Of Hemodynamic Procedure Report Patient Data Patient Demographics Procedure consent was obtained First Name: SRINIVAS Gender: Female Last Name: YUAN : 1960 Middle Initial: SHARATH Age: 57 year(s) Patient #: [id number] Race: Unknown Additional ID: [id number] Contact details Address: [address] [place] [address] lane State: [place] City: [facility] [place], [place] Zip code: [address] Past Medical History Allergies Allergen Reaction Date Comments Reported Other allergy 08/02/2017 codeine, PCN Other allergy 08/16/2017 pcn, codeine Other allergy 10/27/2017 PCN, CODEINE Other allergy 12/08/2017 CODEINE, NORVASC Admission Admission Data Admission Date: 12/10/2017 Admission Time: 8:56 Lab Results Lab Result Date: 12/08/2017 Lab Result Time: 11:45 Biochemistry Name Units Result Min Max BUN mg/dl 19 --(----)*- 7 18 Creatinine mg/dl 0.6 --(*---)-- 0.6 1.3 CBC Name Units Result Min Max Hematocrit % 45 --(*---)-- 42 54 Hemoglobin g/dl 15.3 --(-*--)-- 13.5 17.5 Procedure Procedure Types Cath Procedure Diagnostic Procedure Sedation Charges Moderate Sedation up to 15 minutes PCI Procedure Coronary Stent Coronary Stent Initial Procedure Description Procedure Date Procedure Date: 12/10/2017 Procedure Start Time: 13:03 Procedure End Time: 13:19 Procedure Staff Name Function Jp Chilel MD Performing Physician Krissy Khan RT Monitor Ragini Moreno RN Nurse Karey Mariee RT Scrub Procedure Data Cath Procedure Fluoroscopy Diagnostic fluoroscopy Total fluoroscopy Time: 3.4 time: 3.4 min min Diagnostic fluoroscopy Total fluoroscopy dose: 551 dose: 551 mGy mGy Contrast Material Contrast Material Type Amount (ml) Isovue 300 64 Entry Location Entry Primary Successful Side Size Upsize Upsize Entry Closure Plata ccessful Closure Location (Fr) 1 (Fr) 2 (Fr) Remarks Device Remarks Radial Right 6 Fr Mechanical artery Short Compression Estimated blood loss: 10 ml Procedure Complications No complications Procedure Medications Medication Administration Route Dosage Oxygen NC 2 l/min Lidocaine 2% added to field 20 Heparin Flush Bag added to field 2 bags (1000units/500ml NS) 0.9% NaCl I.V. 100 ml/hr Radial Cocktail I.A. 1 syringe (Verapomil 2mg/Nitro 400mcg/Heparin 1500units) Versed I.V. 2 mg Fentanyl I.V. 100 mcg Versed I.V. 2 mg Fentanyl I.V. 100 mcg Versed I.V. 2 mg Fentanyl I.V. 100 mcg Heparin Bolus I.V. 4000 units Versed I.V. 2 mg Fentanyl I.V. 100 mcg Versed I.V. 2 mg Fentanyl I.V. 100 mcg Plavix P.O. 75 mg Hemodynamics Rest HGB: 15.3 (g/dl) Heart Rate: 99 (bpm) Snapshots Pre Cath Intra NCS Post Cath Vital Signs Time Heart Resp SPO2 etCO2 NIBP (mmHg) Rhythm Pain Sedation Rate (ipm) (%) (mmHg) Status Level (bpm) 12:51:14 100 15 100 38.8 124/88(103) NSR 0 (11) 10(A) , No pain 12:55:45 104 18 100 32.1 137/91(116) NSR 0 (11) 10(A) , No pain 13:00:19 103 19 100 29.1 124/88(100) NSR 0 (11) 10(A) , No pain 13:06:19 100 16 96 40.3 114/83(103) NSR 0 (11) 10(A) , No pain 13:11:23 100 16 96 41.1 112/87(100) NSR 0 (11) 9(A) , No pain 13:15:55 103 19 96 39.5 105/67(94) NSR 0 (11) 10(A) , No pain Medications Time Medication Route Dose Verified Delivered Reason Note s Effectiveness by by 12:50:02 Oxygen NC 2 l/min Jpkhushbu Eid used for Getachew Moreno RN procedure 12:50:08 Lidocaine 2% added 20ml Jp Trammell for local to vial Getachew Chilel MD anesthetic field 12:50:14 Heparin Flush added 2 bags Jp Trammell used for Bag to Getachew Chilel MD procedure (1000units/500ml field NS) 12:50:24 0.9% NaCl I.V. 100 Jp Tseie Per physician ml/hr Getachew Moreno RN 12:50:45 Radial Cocktail I.A. 1 Jp Trammell for (Verapomil syringe Getachew Chilel MD vasodilation 2mg/Nitro 400mcg/Heparin 1500units) 12:59:30 Versed I.V. 2 mg Jp Tseie for sedation Getachew Moreno RN 12:59:35 Fentanyl I.V. 100 mcg Jp Eid for sedation Getachew Moreno RN 13:03:20 Versed I.V. 2 mg Jp Buffie for sedation Getachew Moreno RN 13:03:23 Fentanyl I.V. 100 mcg Jpkhushbu Tseie for sedation Getachew Moreno RN 13:05:08 Versed I.V. 2 mg Jp Buffie for sedation Getachew Moreno RN 13:05:11 Fentanyl I.V. 100 mcg Jpkhushbu Tseie for sedation Getachew Moreno RN 13:07:21 Heparin Bolus I.V. 4000 Jpkhushbu Eid for veri fied units Getachew Moreno RN anticoagulation with dr chilel 13:09:10 Versed I.V. 2 mg Jp Buffie for sedation Getachew Moreno RN 13:09:14 Fentanyl I.V. 100 mcg Jp Buffie for sedation Getachew Moreno RN 13:11:54 Versed I.V. 2 mg Jp Buffie for sedation Getachew Moreno RN 13:11:57 Fentanyl I.V. 100 mcg Jp Buffie for sedation Getachew Moreno RN 13:17:04 Plavix P.O. 75 mg Jp Eid for Getachew Moreno RN antiplatelet therapy Procedure Log Time Note 12:33:57 Ragini Moreno RN sent for patient. Start room use. 12:33:58 Time tracking: Regular hours 12:34:03 Plan of Care:Hemodynamics will remain stable., Cardiac rhythm will remain stable., Comfort level will be maintained., Respiratory function will remain adequate., Patient/ family verbilizes understanding of procedure., Procedure tolerated without complication., Recovers from procedure without complications.. 12:39:51 Patient received from Pre/Post Procedure Room to CCL 1 Alert and oriented. Tansferred to table in Supine position. 12:39:55 Warm blankets applied, and nabor hugger turned on for patient comfort. 12:39:56 Correct patient and procedure confirmed by team. 12:39:57 Signed procedure consent form obtained from patient. 12:39:59 ECG and BP/O2 sat monitors applied to patient. 12:50:02 Oxygen 2 l/min NC was administered by Ragini Moreon RN; used for procedure; 12:50:08 Lidocaine 2% 20ml vial added to field was administered by Jp Chilel MD; for local anesthetic; 12:50:14 Heparin Flush Bag (1000units/500ml NS) 2 bags added to field was administered by Jp Chilel MD; used for procedure; 12:50:24 0.9% NaCl 100 ml/hr I.V. was administered by Ragini Moreno RN; Per physician; 12:50:27 Vital chart was started 12:50:45 Radial Cocktail (Verapomil 2mg/Nitro 400mcg/Heparin 1500units) 1 syringe I.A. was administered by Jp Chilel MD; for vasodilation; 12:52:16 Baseline sample Acquired. 12:52:19 Rhythm: sinus rhythm 12:52:21 Full Disclosure recording started 12:55:23 H&P Date Dictated: 12/10/2017 Within 30 days and on chart., H&P Addendum completed by physician on day of procedure. (MUST COMPLETE FOR ALL OUTPATIENTS). 12:55:24 Pre-procedure instructions explained to patient. 12:55:25 Pre-op teaching completed and patient verbalized understanding. 12:55:27 Family in waiting room. 12:55:29 Patient NPO since Midnight. 12:55:49 Is patient on blood thinner?Yes 12:55:54 ACC The patient was administered the following blood thiners within the last 24 hours: ACCPlavix 12:56:36 Patient diabetic? Yes. 12:56:37 If diabetic: On Metformin? Yes 12:56:41 If on Metformin: Last Dose? 12/03/2017 12:56:44 Previous problem with sedation/anesthesia? No ? 12:56:45 Snore? Yes 12:56:46 Sleep apnea? No 12:56:47 Deviated septum? No 12:56:48 Opens mouth fully? Yes 12:56:48 Sticks out tongue? Yes 12:56:50 Airway obstruction? No ? 12:56:53 Dentures? No ? 12:56:56 Pre procedure: right dorsailis pedis pulse 1+ Palpable, but thready & weak; easily obliterated 12:56:58 Modified Toño's test Ulnar < 7 seconds 12:57:00 Patient pain scale 0/10 ?. 12:57:04 IV patent on arrival in left hand with 0.9% NaCl at [facility]. 12:57:06 Lab results completed and on chart. 12:57:09 Right Radial & Right Groin area was prepped with chlora-prep and draped in sterile fashion 12:57:10 Alarms reviewed by R. N. 12:57:10 Sharps counted by scrub and verified by R.N. 12:59:04 Final Timeout: patient, procedure, and site verified with staff and physician. All members of the team are in agreement. 12:59:08 Right Radial site verified by team. 12:59:11 Physical assessment completed. ASA score P 2 - A patient with mild systemic disease as per Jp Chilel MD. 12:59:14 Sedation plan: IV Moderate Sedation Medication:Versed, Fentanyl 12:59:30 Versed 2 mg I.V. was administered by Ragini Moreno RN; for sedation; 12:59:35 Fentanyl 100 mcg I.V. was administered by Ragini Moreno RN; for sedation; 13:01:37 Zero performed for pressure channel P1 13:03:04 Procedure started. 13:03:13 Local anesthetic to right radial artery with Lidocaine 2% by Jp Chilel MD.INITIAL ACCESS ONLY 13:03:20 Versed 2 mg I.V. was administered by Ragini Moreno RN; for sedation; 13:03:23 Fentanyl 100 mcg I.V. was administered by Ragini Moreno RN; for sedation; 13:04:49 A 6 Fr Short sheath was inserted into the Right Radial artery 13:05:08 Versed 2 mg I.V. was administered by Ragini Moreno RN; for sedation; 13:05:11 Fentanyl 100 mcg I.V. was administered by Ragini Moreno RN; for sedation; 13:06:30 6 Fr HS II SH guide catheter was inserted over the wire 13:07:21 Heparin Bolus 4000 units I.V. was administered by Ragini Moreno RN; for anticoagulation; verified with dr chilel 13:08:54 WHISPER wire advanced. 13:09:10 Versed 2 mg I.V. was administered by Ragini Moreno RN; for sedation; 13:09:14 Fentanyl 100 mcg I.V. was administered by Ragini Moreno RN; for sedation; 13:10:00 Use device set TAU PCI 13:10:04 Use device set CATH PACK 13:10:12 Inflation Number: 1 A MARK OTW 3.5 x 38 stent ([id number]) was prepped and advanced across the Prox RCA. The stent was deployed at 13 [address] for 0:05 (min:sec). 13:10:17 INFLATOR Merit BasixCompak ([id number]) opened to sterile field. 13:10:18 SHEATH 6FR Park (PZL478) opened to sterile field. 13:10:19 WHISPER 300cm guide wire ([id number]) opened to sterile field. 13:10:29 ACIST Syringe (95019) opened to sterile field. 13:10:30 ACIST Hand Control (66092) opened to sterile field. 13:10:30 ACIST Manifold (52575) opened to sterile field. 13:10:31 Medline Cath Pack ([id number]) opened to sterile field. 13:10:32 Bag Decanter (2002) opened to sterile field. 13:10:33 DIAGNOSTIC WIRE .035 260cm J wire (190713) opened to sterile field. 13:10:44 SHEATH 6FR Slender ([id number]) opened to sterile field. 13:10:55 Tegaderm 4 x 4 (1626W) opened to sterile field. 13:11:54 Versed 2 mg I.V. was administered by Ragini Moreon RN; for sedation; 13:11:57 Fentanyl 100 mcg I.V. was administered by Ragini Moreno RN; for sedation; 13:12:49 Stent catheter was removed intact over wire. 13:13:44 Inflation Number: 2 A MARK RX 3.5 x 12 stent ([id number]) was prepped and advanced across the Prox RCA. The stent was deployed at 13 [address] for 0:05 (min:sec). 13:13:58 Stent catheter was removed intact over wire. 13:13:59 Wire removed. 13:13:59 Guide catheter removed. 13:14:27 Sheath removed intact; hemostasis achieved with Mechanical Compression to the Right Radial artery. 13:14:30 Procedure ended.(Physican Out) 13:16:24 Fluoroscopy time 03.40 minutes. 13:16:27 Flurop Dose total: 551 13:16:27 Fluoroscopy dose: 551 mGy 13:16:32 Contrast amount:Isovue 300 64ml. 13:16:33 Sharps counted by scrub and verified by R.N. 13:16:35 TR band inflated with 12cc of air. 13:16:36 Insertion/operative site no bleeding no hematoma. 13:16:48 Post Procedure Pulses reassessed and unchanged 13:16:50 Post-procedure physical assessment completed. ASA score P 2 - A patient with mild systemic disease as per Jp Chilel MD. 13:16:52 Post procedure rhythm: unchanged. 13:16:54 Estimated blood loss: 10 ml 13:16:56 Post procedure instruction explained to patient.Patient verbalizes understanding. 13:16:56 Patient needs reinforcement of post procedure teaching. 13:17:04 Plavix 75 mg P.O. was administered by Ragini Moreno RN; for antiplatelet therapy; 13:17:14 Procedure type changed to Cath procedure, Diagnostic procedure, Sedation Charges, Moderate Sedation up to 15 minutes, PCI procedure, Coronary Stent, Coronary Stent Initial 13:17:35 Procedure Complication : No complications 13:17:37 See physician's report for complete and final results. 13:17:51 TR BAND Standard ([id number]) opened to sterile field. 13:18:20 GUIDE 6FR HS II SH catheter ([id number]) opened to sterile field. 13:18:57 Procedure and supply charges have been captured, reviewed, submitted and are correct. 13:18:57 Vital chart was stopped 13:18:59 Report given to Pre/Post Procedure Room. 13:19:02 Patient transfered to Pre/Post Procedure Room with Stretcher. 13:19:09 Procedure ended. 13:19:09 Full Disclosure recording stopped 13:19:13 End room use (Document Last) Intervention Summary Intervention Notes Time ActionType Lesion and Equipment Used Action# Pressure Duration Attributes 13:10:12 Place stent Prox RCA MARK OTW 3.5 x 1 13 00:05 38 stent ([id number]) 13:13:44 Place stent Prox RCA MARK RX 3.5 x 2 13 00:05 12 stent ([id number]) Device Usage Item Name Manufacture Quantity Catalog Hospital Part Current [facility] Lot# / Number Charge Number Stock Stock Serial# Code MARK OTW 3.5 x Medtronic 1 [id number] [id number] 115886 5 [id number] 38 stent ([id number]) INFLATOR Merit Merit 1 [id number] 693949 006222 947086 15 Perfect Earth ([id number]) SHEATH 6FR Terumo 1 [id number] 743448 376843 036916 40 Park (QPX478) WHISPER 300cm Santos 1 [id number] 608358 354400 898968 5 guide wire Vascular ([id number]) ACIST Syringe Acist 1 50857 245196 370084 359949 20 (19658) Medical Systems Inc ACIST Hand Acist 1 57731 636697 648569 066321 5 Control Medical (44400) Systems Inc ACIST Manifold Acist 1 77943 021853 440583 217556 5 (60587) Medical Systems Inc Medline Cath Cardinal 1 [id number] 780476 72475 441204 5 [facility] ([id number]) Bag Decanter Microtek 1 2001S 786414 12062 715376 5 (2001S) Medical Inc. DIAGNOSTIC St Octavio 1 958500 378409 608216 316466 30 WIRE .035 260cm J wire (080560) SHEATH 6FR Terumo 1 [id number] 024838 008211 149228 40 Slender ([id number]) Tegaderm 4 x 4 3M 1 1626W 734811 262973 670624 5 (1626W) MARK RX 3.5 x Medtronic 1 [id number] 136920 5686351 106810 5 [id number] 12 stent ([id number]) TR BAND Terumo 1 [id number] 848087 418828 207265 40 Standard ([id number]) GUIDE 6FR HS Medtronic 1 [id number] 875554 71382 669737 1 II SH catheter ([id number]) Signature Audit [place] Stage Time Signature Unsigned Intra-Procedure 12/10/2017 Krissy 1:19:22 PM Counts RT(R) Signatures Monitor : Krissy Signature : Counts RT Date : Time : [address] [address]
--- NOTE | ~2017-12-10 | HP ---
PATIENT: SRINIVAS BOLDEN MEDICAL RECORD: [id number] ACCOUNT: [id number] LOCATION:[facility] : 62 ADMISSION DATE: 12/10/17 HISTORY AND PHYSICAL EXAMINATION ADMITTING DIAGNOSES: 1. Angina. 2. Coronary artery disease. 3. Recent PTCA stent to LAD with concomitant disease to RCA. 4. Hypertension. 5. Hyperlipidemia. HISTORY OF PRESENT ILLNESS: Ms. Bolden presents with anginal symptomatology, found to have 2-vessel coronary artery disease of the LAD and RCA, underwent successful PTCA stent of the LAD. She is now brought back for PTCA stent of the RCA. PHYSICAL EXAMINATION: GENERAL APPEARANCE: Well-nourished, well-developed, appears stated age. Level of distress, comfortable. PSYCHIATRIC: Mental status, alert, normal affect. Orientation, oriented to time, place and person. EYES: Lids and conjunctiva, noninjected. No discharge, no pallor. ENT: Lips, teeth, gums, normal dentition. Oropharynx, no cyanosis, no pallor. NECK: Carotid arteries, bilateral normal upstroke, no bruits, no thrills. JUGULAR VEINS: No jugular venous pressure or distention. CERVICAL LYMPH NODES: Nontender, nonenlarged. THYROID: Not enlarged. Nontender. No nodules. LUNGS: Respiratory effort, unlabored. CHEST: Normal curvature. No thoracic deformity. No chest wall tenderness. Percussion, resonant. Auscultation, clear. No wheezes, no rales, no rhonchi. CARDIOVASCULAR: Precordial exam, nondisplaced. No heaves or pericardial thrills. Rate and rhythm, regular. Heart sounds, normal S1, normal S2. No S3, no gallop, no rub. Systolic murmur, not heard. Diastolic murmur, not heard. EXTREMITIES: No cyanosis, no edema. Peripheral pulses, full and equal in all extremities, except as noted. No bruits appreciated. ABDOMEN: Soft, nondistended. Normal aorta. No bruit. Nontender. No masses. Liver, nontender, no hepatomegaly. Spleen, nontender, no splenomegaly. MUSCULOSKELETAL: No joint tenderness. No joint swelling. No erythema. NEUROLOGICAL: Normal gait, normal strength, normal tone. SKIN: Warm and dry. REVIEW OF SYSTEMS: The patient reports easy bruising but reports no swollen glands. The patient reports no fever, no night sweats, no significant weight gain, no significant weight loss. No significant exercise tolerance. The patient reports no dry eyes, no irritation, no vision change. Patient reports no difficulty hearing and no ear pain. Patient reports no frequent nose bleeds or nose and sinus problems. Patient reports on arm pain on exertion. No shortness of breath while lying down. No history of heart murmur. Patient reports no cough, no wheezing or coughing up blood. Patient reports no abdominal pain, no vomiting. Normal appetite. No diarrhea and not vomiting blood. No nausea and no constipation. Patient reports no incontinence. No difficulty urinating. No hematuria. No increased frequency. Patient reports no muscle aches. No weakness, no arthralgias, no back pain. No swelling of the extremities. Patient reports no abnormal mole, no jaundice, no rashes. Reports HISTORY AND PHYSICAL [id number] WATT,SRINIVAS EARLY no loss of consciousness. No weakness and no numbness. No seizures, dizziness, or headaches. The patient reports no depression, no sleep disturbance, feeling safe in a relationship and no alcohol abuse. Patient reports on fatigue. Reports no runny nose or sinus pressure. No itching, no hives, and no frequent sneezing. OVERALL IMPRESSION: Anginal symptomatology with significant disease of the RCA. We will proceed with transcatheter revascularization of the RCA. TRANSINT:[id number] Voice Confirmation ID: [id number] DOCUMENT ID: [id number] BELTRAN PLATA MD at 1153 CC: [id number] DICTATION DATE: 12/10/17 1042 ACCOUNTING COORDINATOR: 12/10/17 1058 [facility] [address] [place] [address]
[~2017-12-10 08:56] MED LIST changes: +BAYER CHEWABLE81 MG PO; +NORCO 7.5/325 T1 TA1 PO
[2017-12-10 10:13] VITALS: BP 155/86; Ht 152.4 cm; Wt 102.7 kg
[2017-12-10 10:16] LABS: BASOPHILS 0.3 % (0-2); EOSINOPHILS 2.7 % (0-7); HEMATOCRIT 40.6 % (36.0-48.0); HEMOGLOBIN 12.8 g/dL (12-16); IMMATURE GRANULOCYTES 0.3 % (0-5); LYMPHOCYTES 20.2 % (15-50); MCH 26.2 pg (26.0-34.0); MCHC 31.5 g/dL (31.0-37.0); MCV 83.2 fL (80.0-100.0); MEAN PLATELET VOLUME 9.1 fL (7.4-10.4); NEUTROPHILS 69.5 % (40-80); PLATELET COUNT 289 10x3/uL (130-400); RBC 4.88 10x6/uL (4.00-5.40); RDW 16.9 % (11.5-14.5); WBC 11.5 10x3/uL (4.8-10.8)
[2017-12-10 10:35] LABS: CALC OSMOLALITY 280 mosm/kg (275-300); CALCIUM 8.8 mg/dL (8.5-10.1); CHLORIDE - SERUM 104 mmol/L (98-107); CREATININE - SERUM 0.8 mg/dL (0.6-1.3); POTASSIUM - SERUM 3.9 mmol/L (3.5-5.1); SODIUM 139 mmol/L (136-145); UREA NITROGEN 18 mg/dL (7-18); eGFR NON AFRICAN AMERICAN 78 mL/min (90-120)
[2017-12-10 10:39] LABS: GLUCOSE 123 mg/dL (74-106)
== END | disposition home or self-care (01) ==
LOC: D.CATH 08:56
PROVIDERS: Internal Medicine Interventional Cardiology
DX: I25.119 Atherosclerotic heart disease of native coronary artery with unspecified angina pectoris (principal); Z95.5 Presence of coronary angioplasty implant and graft; I10 Essential (primary) hypertension; E78.5 Hyperlipidemia, unspecified; Z01.812 Encounter for preprocedural laboratory examination

== ENCOUNTER 2018-07-21 05:58 | Outpatient (CLI) | payer OTHER ==
[~2018-07-21] VITALS: Ht 152.4 cm; Wt 100.5 kg
--- NOTE | ~2018-07-21 | HEMODYNAMI ---
PATIENT:SRINIVAS BOLDEN MEDICAL RECORD: [id number] : 62 LOCATION:[facility] ADMISSION DATE: 07/21/18 Generatedon:07/21/20189:15 Patient name: SRINIVAS BOLDEN Patient #: [id number] SSN: : 1960 Date of study: 07/21/2018 Page: Of Hemodynamic Procedure Report Patient Data Patient Demographics Procedure consent was obtained First Name: SRINIVAS Gender: Female Last Name: YAUN : 1960 Middle Initial: SHARATH Age: 57 year(s) Patient #: [id number] Race: Unknown Additional ID: [id number] Contact details Address: [address] [place] [address] State: [place] City: [facility] Zip code: [address] Past Medical History Allergies Allergen Reaction Date Comments Reported Other allergy 08/02/2017 codeine, PCN Other allergy 08/16/2017 pcn, codeine Other allergy 10/27/2017 PCN, CODEINE Other allergy 12/08/2017 CODEINE, NORVASC Other allergy 07/21/2018 PCN, CODEINE Admission Admission Data Admission Date: 07/21/2018 Admission Time: 5:58 Admit Source: Other Height (in.): 60 BSA: 1.95 (m2) Height (cm.): 152.4 BMI: 43.16 (kg/m2) Weight (lbs.): 221 Weight (kg.): 100.24 Lab Results Lab Result Date: 07/21/2018 Lab Result Time: 0:00 Biochemistry Name Units Result Min Max BUN mg/dl 15 --(--*-)-- 7 18 Creatinine mg/dl 0.8 --(-*--)-- 0.6 1.3 CBC Name Units Result Min Max Hemoglobin g/dl 13.3 -*(----)-- 13.5 17.5 Procedure Procedure Types Cath Procedure Diagnostic Procedure C LHC w/Coronaries Sedation Charges Moderate Sedation up to 45 minutes Peripheral Cath Diagnostic Procedure Racing Manager Peripheral Procedures Swjja-Asvgaqu-Kle-Off Procedure Description Procedure Date Procedure Date: 07/21/2018 Procedure Start Time: 8:10 Procedure End Time: 9:05 Procedure Staff Name Function Jose Chaves MD Performing Physician Ragini Moreno RN Nurse Nora Hartamn RN Nurse Troy Colon RT Scrub Karey Mariee RT Monitor Procedure Data Cath Procedure Fluoroscopy Diagnostic fluoroscopy Total fluoroscopy Time: 8 time: 8 min min Diagnostic fluoroscopy Total fluoroscopy dose: 966 dose: 966 mGy mGy Contrast Material Contrast Material Type Amount (ml) Isovue 300 138 Entry Location Entry Primary Successful Side Size Upsize Upsize Entry Closure Plata ccessful Closure Location (Fr) 1 (Fr) 2 (Fr) Remarks Device Remarks Femoral Right 5 Fr Manual vein Compression Femoral Right 5 Fr Exoseal artery Estimated blood loss: 5 ml Diagnostic catheters Device Type Used For End Catheter Placement MULTIPACK JL 4.0 5Fr Procedure catheter MULTIPACK 3DRC 5Fr Procedure catheter MULTIPACK Pigtail 5 Fr Procedure catheter Procedure Complications No complications Procedure Medications Medication Administration Route Dosage 0.9% NaCl I.V. 100 ml/hr Oxygen etCO2 Nasal cannula 2 l/min Lidocaine 2% added to field 20 Heparin Flush Bag added to field 2 bags (1000units/500ml NS) Heparin Flush Bag added to field 1 bags (1000units/500ml NS) Versed I.V. 2 mg Fentanyl I.V. 100 mcg Versed I.V. 2 mg Fentanyl I.V. 100 mcg Versed I.V. 2 mg Fentanyl I.V. 100 mcg Versed I.V. 2 mg Fentanyl I.V. 100 mcg Versed I.V. 2 mg Fentanyl I.V. 100 mcg Fentanyl I.V. 50 mcg Hemodynamics Rest BSA: 1.95 (m2) HGB: 13.3 (g/dl) O2 Consumption: Estimated: 200.58 (ml/min) O2 Co nsumption indexed: Estimated:102.86 (ml/min/m) Heart Rate: 88 (bpm) Pressure Samples Time Site Value (mmHg) Purpose Heart Use Rate(bpm) 8:55 LV 154/-5,14 Snapshot 102 8:56 AO 159/77(114) Pullback 100 8:56 LV 170/3,16 Pullback 100 Gradients Valve Time Site 1 Site 2 Mean SEP/DFP Peak To Heart Use (mmHg) (sec/min) Peak Rate (mmHg) (bpm) Aortic 8:56 LV AO 13 32 11 100 170/3,16 159/77(114) Calculations Valve P-P Mean Valve Index Valve Source Name Gradient Area Flow (cm2) Aortic 11 13 11 13 Snapshots Pre Cath Intra NCS Post Cath Vital Signs Time Heart Resp SPO2 etCO2 NIBP (mmHg) Rhythm Pain Status Sedation Rate (ipm) (%) (mmHg) Level (bpm) 7:44:09 95 24 100 41.8 164/96(124) NSR 0 (11) , No 10(A) pain 7:48:25 91 26 100 35.8 168/93(134) NSR 0 (11) , No 10(A) pain 7:52:35 90 13 98 37.3 106/95(101) NSR 0 (11) , No 10(A) pain 7:56:35 85 16 100 38.8 127/82(108) NSR 0 (11) , No 10(A) pain 8:01:36 83 16 100 40.3 197/160(192) NSR 0 (11) , No 10(A) pain 8:05:50 80 11 98 29.7 122/84(103) NSR 0 (11) , No 10(A) pain 8:09:53 84 15 96 24.3 125/87(115) NSR 0 (11) , No 10(A) pain 8:13:57 87 16 97 33.4 128/93(122) NSR 0 (11) , No 9(A) pain 8:18:01 85 14 97 36.5 124/90(117) NSR 0 (11) , No 9(A) pain 8:22:07 94 14 98 40.3 137/85(105) NSR 0 (11) , No 9(A) pain 8:26:17 90 18 95 32.7 119/86(104) NSR 0 (11) , No 9(A) pain 8:30:14 88 15 96 37.3 124/93(113) NSR 0 (11) , No 9(A) pain 8:34:20 89 16 96 38 120/80(95) NSR 0 (11) , No 9(A) pain 8:38:22 98 14 97 42.6 139/88(114) NSR 0 (11) , No 10(A) pain 8:42:19 89 18 96 33.4 91/76(84) NSR 0 (11) , No 10(A) pain 8:49:50 98 19 99 40.3 125/99(108) NSR 4 (11) , 10(A) Distressing 8:59:50 97 16 98 45.7 140/80(100) NSR 2 (11) , 10(A) Uncomfortable 9:04:49 92 8 99 47.2 Measuring NSR 2 (11) , 10(A) Uncomfortable 9:06:13 92 9 45.7 Time NSR 2 (11) , 10(A) Exceeded Uncomfortable Medications Time Medication Route Dose Verified Delivered Reason Notes Effe ctiveness by by 7:44:49 0.9% NaCl I.V. 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 2 mg Jose Nora for Anastacio Hartman sedation RN 8:01:25 Fentanyl I.V. 100 Jose Nora for mcg Anastacio Hartman sedation RN 8:04:24 Versed I.V. 2 mg Jose Nora for Anastacio Hartman sedation RN 8:04:28 Fentanyl I.V. 100 Jose Nora for mcg Anastacio Hartman sedation RN 8:11:39 Versed I.V. 2 mg Jose Nora for Anastacio Hartman sedation RN 8:11:43 Fentanyl I.V. 100 Jose Nora for mcg Anastacio Hartman sedation RN 8:22:17 Versed I.V. 2 mg Jose Nora for Anastacio Hartman sedation RN 8:22:27 Fentanyl I.V. 100 Jose Nora for mcg Anastacio Hartman sedation RN 8:40:07 Versed I.V. 2 mg Jose Nora for Anastacio Hartman sedation RN 8:40:10 Fentanyl I.V. 100 Jose Nora for mcg Anastacio Hartman sedation RN 8:58:51 Fentanyl I.V. 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 Start room use. 7:33:04 Informed consent obtained and on chart 7:33:07 Admit Source: Other 7:34:24 Diagnostic Cath status Elective 7:34:35 Time tracking: Regular hours (M-F 7:00 - 5:00) 7:34:41 Plan of Care:Hemodynamics will remain stable., Cardiac rhythm will remain stable., Comfort level will be maintained., Respiratory function will remain adequate., Patient/ family verbilizes understanding of procedure., Procedure tolerated without complication., Recovers from procedure without complications.. 7:36:54 H&P Date Dictated: 07/13/2018 Within 30 days and on chart., H&P Addendum completed by physician on day of procedure. (MUST COMPLETE FOR ALL OUTPATIENTS). 7:37:03 Patient Height : 60 inches 7:37:06 Patient Weight : 221 lbs 7:37:19 Patient allergic to Other allergyPCN, CODEINE 7:37:38 Patient received from Pre/Post Procedure Room to CCL 1 Alert and oriented. Tansferred to table in Supine position. 7:37:39 Warm blankets applied, and nabor hugger turned on for patient comfort. 7:37:39 Correct patient and procedure confirmed by team. 7:37:41 ECG and BP/O2 sat monitors applied to patient. 7:43:08 Vital chart was started 7:44:49 0.9% NaCl 100 ml/hr I.V. was administered by Nora Hartman RN; used for procedure; 7:44:57 Oxygen 2 l/min etCO2 Nasal cannula was administered by Nora Hartman RN; used for procedure; 7:45:02 Lidocaine 2% 20ml vial added to field was administered by Jose Chaves MD; for local anesthetic; 7:45:06 Heparin Flush Bag (1000units/500ml NS) 2 bags added to field was administered by Jose Chaves MD; used for procedure; 7:52:54 Baseline sample Acquired. 7:52:58 Rhythm: sinus rhythm 7:52:59 Full Disclosure recording started 7:53:00 Pre-procedure instructions explained to patient. 7:53:01 Pre-op teaching completed and patient verbalized understanding. 7:53:02 Family in patients room. 7:53:05 Patient NPO since Midnight. 7:53:13 Is patient on blood thinner?Yes 7:53:15 ACC The patient was administered the following blood thiners within the last 24 hours: ACCPlavix 7:53:16 Patient diabetic? Yes. 7:53:17 If diabetic: On Metformin? Yes 7:53:21 If on Metformin: Last Dose? 07/19/2018 7:54:06 Previous problem with sedation/anesthesia? No ? 7:54:07 Snore? Yes 7:54:08 Sleep apnea? No 7:54:09 Deviated septum? No 7:54:10 Opens mouth fully? Yes 7:54:11 Sticks out tongue? Yes 7:54:13 Airway obstruction? No ? 7:54:14 Dentures? No ? 7:54:17 Pre procedure: right dorsailis pedis pulse 1+ Palpable, but thready & weak; easily obliterated 7:54:26 Pre procedure: left dorsailis pedis pulse Doppler 7:54:29 Patient pain scale 0/10 ?. 7:54:35 IV patent on arrival in left hand with 0.9% NaCl at O. 7:54:44 Bilateral groins area was prepped with chlora-prep and draped in sterile fashion 7:54:45 Alarms reviewed by R. N. 7:54:49 Sharps counted by scrub and verified by R.N. 7:54:55 Use device set CATH PACK 7:54:56 ACIST Syringe (66140) opened to sterile field. 7:54:56 ACIST Hand Control (20371) opened to sterile field. 7:54:57 ACIST Manifold (73293) opened to sterile field. 7:54:57 Medline Cath Pack ([id number]) opened to sterile field. 7:54:58 Bag Decanter (2002S) opened to sterile field. 7:54:58 DIAGNOSTIC WIRE .035 260cm J wire (261070) opened to sterile field. 7:55:04 SHEATH 5FR [place] (HPQ971) opened to sterile field. 7:55:28 Heparin Flush Bag (1000units/500ml NS) 1 bags added to field was administered by Jose Chaves MD; used for procedure; 7:58:59 Lab Result : BUN 15 mg/dl 7:58:59 Lab Result : Hemoglobin 13.3 g/dl 7:58:59 Lab Result : Creatinine 0.8 mg/dl 7:59:04 Lab results completed and on chart. 8:00:47 --------ALL STOP TIME OUT------ 8:00:47 Final Timeout: patient, procedure, and site verified with staff and physician. All members of the team are in agreement. 8:00:49 Bilateral groins site verified by team. 8:00:55 Physical assessment completed. ASA score P 2 - A patient with mild systemic disease as per Jose Chaves MD. 8:00:58 Sedation plan: IV Moderate Sedation Medication:Versed, Fentanyl 8:01:17 Versed 2 mg I.V. was administered by Nora Hartman RN; for sedation; 8:01:25 Fentanyl 100 mcg I.V. was administered by Nora Hartman RN; for sedation; 8:04:24 Versed 2 mg I.V. was administered by Nora Hartman RN; for sedation; 8:04:28 Fentanyl 100 mcg I.V. was administered by Nora Hartman RN; for sedation; 8:10:37 Procedure started. 8:10:58 Local anesthetic to right femoral artery with Lidocaine 2% by Jose Chaves MD.INITIAL ACCESS ONLY 8:10:59 Zero performed for pressure channel P1 8:11:39 Versed 2 mg I.V. was administered by Nora Hartman RN; for sedation; 8:11:43 Fentanyl 100 mcg I.V. was administered by Nora Hartman RN; for sedation; 8:12:43 Use device set Multipack Set 8:12:44 DIAGNOSTIC Multipack 5Fr catheter set ([id number]) opened to sterile field. 8:15:08 A 5 Fr sheath was inserted into the Right Femoral vein 8:16:06 SHEATH 5FR [place] ([id number]) opened to sterile field. 8:22:17 Versed 2 mg I.V. was administered by Nora Hartman RN; for sedation; 8:22:27 Fentanyl 100 mcg I.V. was administered by Nora Hartman RN; for sedation; 8:26:38 MICROPUNCTURE 4FR [place] ([id number]) opened to sterile field. 8:40:07 Versed 2 mg I.V. was administered by Nora Hartman RN; for sedation; 8:40:10 Fentanyl 100 mcg I.V. was administered by Nora Hartman RN; for sedation; 8:48:07 A 5 Fr sheath was inserted into the Right Femoral artery 8:50:16 A MULTIPACK JL 4.0 5Fr catheter was advanced over the wire and used for Procedure. 8:52:24 LCA angiography performed. 8:52:25 Catheter exchanged over wire. 8:53:18 A MULTIPACK 3DRC 5Fr catheter was advanced over the wire and used for Procedure. 8:54:13 RCA angiography performed. 8:54:24 Catheter exchanged over wire. 8:54:52 A MULTIPACK Pigtail 5 Fr catheter was advanced over the wire and used for Procedure. 8:55:38 LV gram done using SEPULVEDA 8:55:43 Injector settings: Ml/sec: 102, Volume: 20, 8:55:50 LV hemodynamics recorded. 8:55:59 EF : 60 % 8:56:28 CATHETER PULLED DOWN FOR AFRO 8:58:43 Abdominal angiogram w/ runoff was performed. 8:58:46 Left leg runoff performed. 8:58:47 Right leg runoff performed. 8:58:51 Fentanyl 50 mcg I.V. was administered by Nora Hartman RN; for sedation; 9:00:44 Catheter removed. 9:00:46 EXOSEAL 5Fr (EX500) opened to sterile field. 9:02:31 Sheath removed intact; hemostasis achieved with Exoseal to the Right Femoral artery. 9:02:55 Sheath removed intact; hemostasis achieved with Manual Compression to the Right Femoral vein. 9:03:11 Procedure ended.(Physican Out) 9:03:40 Fluoroscopy time 08.00 minutes. 9:03:45 Flurop Dose total: 966 9:03:45 Fluoroscopy dose: 966 mGy 9:03:50 Contrast amount:Isovue 300 138ml. 9:03:52 Sharps counted by scrub and verified by R.N. 9:03:55 Post-op/insertion site Right Femoral artery dressed using a 4 x 4 and Tegaderm. 9:04:00 Post-procedure physical assessment completed. ASA score P 2 - A patient with mild systemic disease as per Jose Chaves MD. 9:04:04 Post procedure rhythm: sinus rhythm 9:04:06 Estimated blood loss: 5 ml 9:04:08 Post procedure instruction explained to patient.Patient verbalizes understanding. 9:04:09 Patient needs reinforcement of post procedure teaching. 9:04:34 Procedure type changed to Cath procedure, Diagnostic procedure, LHC, LHC w/Coronaries, Sedation Charges, Moderate Sedation up to 45 minutes, Peripheral Cath Diagnostic Procedure, Racing Manager Peripheral Procedures, Reyzr-Fdlacrk-Vco-Off 9:04:54 Procedure and supply charges have been captured, reviewed, submitted and are correct. 9:04:56 Procedure Complication : No complications 9:04:58 Vital chart was stopped 9:04:58 See physician's report for complete and final results. 9:05:00 Report given to Pre/Post Procedure Room. 9:05:02 Patient transfered to Pre/Post Procedure Room with Bed. 9:05:04 Procedure ended. 9:05:04 Full Disclosure recording stopped 9:05:09 End room use (Document Last) Device Usage Item Name Manufacture Quantity Catalog Hospital Part Current Minimal Lot# / Number Charge Number Stock Stock Serial# Code ACIST Syringe Acist 1 46691 542683 804789 401812 20 (09077) Medical Systems Inc ACIST Hand Acist 1 06957 552057 644552 479646 5 Control Medical (51890) Systems Inc ACIST Acist 1 63014 591071 724470 702099 5 Manifold Medical (23350) Systems Inc Medline Cath Medline 1 [id number] 131580 35817 851623 5 Pack ([id number]) Bag Decanter Microtek 1 611161 01013 292071 5 () Medical Inc. DIAGNOSTIC [place] 1 183130 888928 036713 464567 30 WIRE .035 260cm J wire (299865) SHEATH 5FR Terumo 2 [id number] 220560 546640 155172 40 [place] (ILG592) DIAGNOSTIC Cardinal 1 [id number] 717779 05737 846260 30 Multipack 5Fr Health catheter set (BU9965) MICROPUNCTURE [place] [facility] 1 E06057 448003 451821 564207 5 4FR [place] (F84607) MULTIPACK JL Cardinal 1 221034 5 4.0 5Fr Health catheter MULTIPACK Cardinal 1 693624 5 3DRC 5Fr Health catheter MULTIPACK Cardinal 1 443394 5 Pigtail 5 Fr Health catheter EXOSEAL 5Fr Cardinal 1 EX500 421027 933272 894950 10 (EX500) Health Signature Audit [place] Stage Time Signature Unsigned Intra-Procedure 07/21/2018 Karey Mariee 9:15:24 AM RT(R) Signatures Monitor : Karey Mariee Signature : RT Date : Time : [address] [address]
[2018-07-21 06:28] VITALS: BP 149/74; Ht 152.4 cm; Wt 100.5 kg
[2018-07-21 06:49] LABS: BASOPHILS 0.2 % (0-2); EOSINOPHILS 3.3 % (0-7); HEMATOCRIT 41.4 % (36.0-48.0); HEMOGLOBIN 13.3 g/dL (12-16); IMMATURE GRANULOCYTES 0.1 % (0-5); LYMPHOCYTES 25.1 % (15-50); MCH 26.7 pg (26.0-34.0); MCHC 32.1 g/dL (31.0-37.0); MCV 83.1 fL (80.0-100.0); MEAN PLATELET VOLUME 9.1 fL (7.4-10.4); MONOCYTES 6.8 % (2-11); NEUTROPHILS 64.5 % (40-80); PLATELET COUNT 309 10x3/uL (130-400); RBC 4.98 10x6/uL (4.00-5.40); RDW 16.1 % (11.5-14.5); WBC 9.6 10x3/uL (4.8-10.8)
[2018-07-21 06:56] LABS: CALC OSMOLALITY 286 mosm/kg (275-300); CALCIUM 8.7 mg/dL (8.5-10.1); CARBON DIOXIDE 28.5 mmol/L (21.0-32.0); CHLORIDE - SERUM 104 mmol/L (98-107); CREATININE - SERUM 0.8 mg/dL (0.6-1.3); GLUCOSE 152 mg/dL (74-106); SODIUM 142 mmol/L (136-145); UREA NITROGEN 15 mg/dL (7-18); eGFR NON AFRICAN AMERICAN 78 mL/min (90-120)
== END 2018-07-21 12:18 | disposition home or self-care (01) ==
LOC: D.CATH 05:58
PROVIDERS: Internal Medicine Cardiovascular Disease
DX: I25.10 Atherosclerotic heart disease of native coronary artery without angina pectoris (principal); I70.211 Atherosclerosis of native arteries of extremities with intermittent claudication, right leg; I70.212 Atherosclerosis of native arteries of extremities with intermittent claudication, left leg

== ENCOUNTER 2019-07-13 10:00 | Outpatient (CLI) | payer MEDICAID ==
[2018-07-21 06:28] VITALS: BMI 43.2
== END 2019-07-13 11:00 | disposition home or self-care (01) ==
LOC: D.MAMMO 10:00
PROVIDERS: ATTEND Family Medicine
DX: Z12.31 Encounter for screening mammogram for malignant neoplasm of breast (principal)

== ENCOUNTER → 2020-04-04 07:41 | Outpatient (CLI) | payer MEDICAID ==
[2018-07-21 06:28] VITALS: BMI 43.2
== END | disposition home or self-care (01) ==
LOC: D.CT 07:41
PROVIDERS: ATTEND Internal Medicine Cardiovascular Disease
DX: I70.213 Atherosclerosis of native arteries of extremities with intermittent claudication, bilateral legs (principal)

== ENCOUNTER → 2020-04-08 10:47 | Outpatient (CLI) | payer MEDICAID ==
[2018-07-21 06:28] VITALS: BMI 43.2
== END | disposition home or self-care (01) ==
LOC: D.HCCARDIO 10:47
PROVIDERS: ATTEND Internal Medicine Cardiovascular Disease
DX: I25.10 Atherosclerotic heart disease of native coronary artery without angina pectoris (principal)